=== PATIENT | male | born 1950 | race Caucasian/White ===

== ENCOUNTER → 2017-09-14 | Day surgery (SDC) | payer MEDICARE ==
[~2017-09-14] VITALS: Ht 190.5 cm; Wt 171.9 kg
[~2017-09-14] MED LIST: ADVAIR DISKUS 21 DSK INH; ALBUTEROL2.5 MG/0.5 INH; BRIO PO; LISINOPRIL10 M1 PO; LORCET PLUS 7.1 EACH PO; VITAMIN D5000 UNIT PO
--- NOTE | ~2017-09-14 | O ---
[place], [place] OPERATIVE NOTE NAME: MARVIN CABELLO [facility]: [id number] UNIT #: [id number] ROOM: DOCTOR: JAJA MACKENZIE MD BIRTHDATE: [birth year] DOS: 09/14/2017 PREOPERATIVE DIAGNOSIS: Cataract, right eye. POSTOPERATIVE DIAGNOSIS: Cataract, right eye. OPERATION: Extracapsular cataract extraction by phacoemulsification with posterior chamber intraocular lens implantation, right eye. ANESTHESIA: Monitored standby. OPERATIVE FINDINGS AND PROCEDURE: 2% Xylocaine topical anesthetic gel was applied to the eye in the preop area. The patient was taken to the operating room and prepped and draped in the standard fashion for sterile intraocular surgery. A time out procedure was performed verifying correct patient, correct site and corrects lens with Misael Mackenzie M.D. The operating microscope was swung into position and the lid speculum was inserted. Using a Macey paracentesis blade, a paracentesis was made through clear cornea. Viscoelastic was used to fill the anterior chamber. Using a metal keratome a 2.4 mm self-sealing clear corneal cataract incision was made temporally at the limbus. Using a pre-bent 25 gauge cystotome needle, a standard continuous curvilinear capsulorrhexis was performed. The anterior capsule was removed with forceps. The lens nucleus was hydrodissected and phacoemulsified in the posterior chamber. Cortical material was removed with the irrigation aspiration hand piece and the posterior capsule was then polished with a curet under irrigation. The posterior chamber and capsular bag were filled with viscoelastic. A posterior chamber intraocular lens manufactured by: [employer], Model #[id number] and 17.5 diopters in strength were then inserted into the posterior chamber and within the capsular bag using the lens cartridge and injector system. Viscoelastic was removed using the irrigation aspiration handpiece. The anterior chamber was filled with balanced salt solution through the paracentesis. Both the paracentesis site and cataract incisions were hydrated with BSS and verified to be water-tight and self-sealing. Cefuroxime 1 mg/0.1 mL was injected into the anterior chamber through the paracentesis site. The incision checked to be water-tight using a Weck-Zulma sponge. The integrity of the cataract wound and ocular tension were checked. Lid speculum and drapes were removed. The patient was transferred from the operating room to the recovery room in satisfactory condition. [place], [place] OPERATIVE NOTE NAME: MARVIN CABELLO UNIT #: [id number] ROOM: DOCTOR: JAJA MACKENZIE MD BIRTHDATE: [birth year] JAJA MACKENZIE MD CM:OPRECORD:OPERATIVE NOTE [id number] JAJA MACKENZIE MD 09/14/17 1004 interface
[2017-09-14 07:00] VITALS: BP 158/79
[2017-09-14 08:31] VITALS: BP 135/61
[2017-09-14 09:01] VITALS: BP 122/74
== END | disposition home or self-care (01) ==
LOC: SDC 09-07 08:45
DX: H26.9 Unspecified cataract (principal); I10 Essential (primary) hypertension; J44.9 Chronic obstructive pulmonary disease, unspecified; F17.210 Nicotine dependence, cigarettes, uncomplicated; Z79.899 Other long term (current) drug therapy; E66.01 Morbid (severe) obesity due to excess calories; Z98.890 Other specified postprocedural states; Z82.49 Family history of ischemic heart disease and other diseases of the circulatory system

== ENCOUNTER → 2017-10-19 | Day surgery (SDC) | payer MEDICARE ==
[~2017-10-19] VITALS: Ht 190.5 cm; Wt 158.8 kg
--- NOTE | ~2017-10-19 | O ---
[place], [place] OPERATIVE NOTE [id number] UNIT #: [id number] ROOM: DOCTOR: JAJA MACKENZIE MD BIRTHDATE: [birth year] DOS: 10/19/2017 PREOPERATIVE DIAGNOSIS: Cataract, left eye. POSTOPERATIVE DIAGNOSIS: Cataract, left eye. OPERATION: Extracapsular cataract extraction by phacoemulsification with posterior chamber intraocular lens implantation, left eye. ANESTHESIA: Monitored standby. OPERATIVE FINDINGS AND PROCEDURE: 2% Xylocaine topical anesthetic gel was applied to the eye in the preop area. The patient was taken to the operating room and prepped and draped in the standard fashion for sterile intraocular surgery. A time out procedure was performed verifying correct patient, correct site and corrects lens with Misael Mackenzie M.D. The operating microscope was swung into position and the lid speculum was inserted. Using a Macey paracentesis blade, a paracentesis was made through clear cornea. Viscoelastic was used to fill the anterior chamber. Using a metal keratome a 2.4 mm self-sealing clear corneal cataract incision was made temporally at the limbus. Using a pre-bent 25 gauge cystotome needle, a standard continuous curvilinear capsulorrhexis was performed. The anterior capsule was removed with forceps. The lens nucleus was hydrodissected and phacoemulsified in the posterior chamber. Cortical material was removed with the irrigation aspiration hand piece and the posterior capsule was then polished with a curet under irrigation. The posterior chamber and capsular bag were filled with viscoelastic. A posterior chamber intraocular lens manufactured by: [employer], Model #[id number], and 16.0 diopters in strength were then inserted into the posterior chamber and within the capsular bag using the lens cartridge and injector system. Viscoelastic was removed using the irrigation aspiration handpiece. The anterior chamber was filled with balanced salt solution through the paracentesis. Both the paracentesis site and cataract incisions were hydrated with BSS and verified to be water-tight and self-sealing. Cefuroxime 1 mg/0.1 mL was injected into the anterior chamber through the paracentesis site. The incision checked to be water-tight using a Weck-Zulma sponge. The integrity of the cataract wound and ocular tension were checked. Lid speculum and drapes were removed. The patient was transferred from the operating room to the recovery room in satisfactory condition. [place], [place] OPERATIVE NOTE NAME: MARVIN CABELLO UNIT #: [id number] ROOM: DOCTOR: JAJA MACKENZIE MD BIRTHDATE: [birth year] JAJA MACKENZIE MD CM:OPRECORD:OPERATIVE NOTE [id number] JAJA MACKENZIE MD 10/19/17 1419 interface
[2017-10-19 12:00] VITALS: BP 100/66
[2017-10-19 13:22] VITALS: BP 115/55
[2017-10-19 13:35] VITALS: BP 98/61
[2017-10-19 13:50] VITALS: BP 106/63
== END | disposition home or self-care (01) ==
LOC: SDC 10-14 13:15
DX: H25.89 Other age-related cataract (principal); I10 Essential (primary) hypertension; J43.9 Emphysema, unspecified; K21.9 Gastro-esophageal reflux disease without esophagitis; Z98.890 Other specified postprocedural states; F17.210 Nicotine dependence, cigarettes, uncomplicated; Z79.899 Other long term (current) drug therapy; E66.01 Morbid (severe) obesity due to excess calories; M19.90 Unspecified osteoarthritis, unspecified site; Z82.49 Family history of ischemic heart disease and other diseases of the circulatory system

== ENCOUNTER → 2017-12-09 | Outpatient (CLI) | payer MEDICARE | END | disposition home or self-care (01) | LOC: RAD 06:52 | DX: M19.031 Primary osteoarthritis, right wrist (principal); W19.XXXA Unspecified fall, initial encounter; Y93.89 Activity, other specified; Y92.89 Other specified places as the place of occurrence of the external cause; Y99.8 Other external cause status ==

== ENCOUNTER → 2018-02-10 | Outpatient (CLI) | payer MEDICARE | END | disposition home or self-care (01) | LOC: ORTHO 03:57 | DX: S42.92XD Fracture of left shoulder girdle, part unspecified, subsequent encounter for fracture with routine healing (principal); Z91.81 History of falling; X58.XXXD Exposure to other specified factors, subsequent encounter ==

== ENCOUNTER → 2018-02-15 | Outpatient (CLI) | payer MEDICARE ==
[2018-02-15 07:49] LABS: BUN 31 mg/dl (7-24); CREATININE 1.35 mg/dL (0.70-1.30)
== END | disposition home or self-care (01) ==
LOC: CT 02-13 10:00 → LAB 07:24 → CT 08:00
PROVIDERS: Internal Medicine Critical Care Medicine
DX: J44.9 Chronic obstructive pulmonary disease, unspecified (principal); R91.8 Other nonspecific abnormal finding of lung field; F17.200 Nicotine dependence, unspecified, uncomplicated

== ENCOUNTER → 2018-10-25 | Outpatient (CLI) | payer MEDICARE | END | disposition home or self-care (01) | LOC: RAD 08:38 | DX: M16.12 Unilateral primary osteoarthritis, left hip (principal) ==

== ENCOUNTER → 2018-12-06 | Outpatient (CLI) | payer MEDICARE | END | disposition home or self-care (01) | LOC: ORTHO 02:15 | DX: M47.816 Spondylosis without myelopathy or radiculopathy, lumbar region (principal); M41.86 Other forms of scoliosis, lumbar region; M51.36 Other intervertebral disc degeneration, lumbar region; W19.XXXD Unspecified fall, subsequent encounter ==

== ENCOUNTER → 2019-02-26 | Outpatient (CLI) | payer MEDICARE ==
[~2019-02-26] MED LIST changes: +BUMETANIDE1 MG PO; +CARVEDILOL12.5 MG PO; +DOXYCYCLINE100 M3 PO; +HYDROCODONE-AC1 EAC2 PO; +IBU600 M1 PO; +LISINOPRIL20 MG PO; +MAGNESIUM OXID400 MG PO; +MECLIZINE HCL25 M2 PO; +PREDNISONE5 MG PO; +PROTONIX40 MG PO; +VENTOLIN 02.5 MG/3 M NEB; +XARE20MG PO; +ZESTORETIC 20-1 EACH PO
[2019-02-26 10:57] LABS: BUN 26 mg/dl (7-24); CREATININE 1.17 mg/dL (0.70-1.30)
== END | disposition home or self-care (01) ==
LOC: CT 10:23 → LAB 10:23 → CT 11:00
PROVIDERS: Internal Medicine Critical Care Medicine
DX: R59.0 Localized enlarged lymph nodes (principal); R06.02 Shortness of breath

== ENCOUNTER → 2019-04-24 | Outpatient (CLI) | payer MEDICARE ==
[2019-04-24 10:36] LABS: BUN 32 mg/dl (7-24); CHLORIDE 98 mmol/L (98-107); CREATININE 1.37 mg/dL (0.70-1.30); POTASSIUM 4.1 mmol/L (3.5-5.1); SODIUM 136 mmol/L (136-145)
== END | disposition home or self-care (01) ==
LOC: LAB 09:43
PROVIDERS: Internal Medicine Nephrology
DX: E87.5 Hyperkalemia (principal)

== ENCOUNTER 2019-05-12 05:08 | Inpatient (IN) | payer MEDICARE ==
[2019-05-12] VITALS (64 sets, daily range): BP systolic 63–135; BP diastolic 30–71
[~2019-05-12] VITALS: Ht 190.5 cm; Wt 169.8 kg
--- NOTE | ~2019-05-12 | PR ---
[place], [place] PROGRESS NOTE [id number] UN[facility] #: [id number] ROOM: [facility] DOCTOR: OCTAVIA MEJIA MD BIRTHDATE: [birth year] DOS: 05/15/2019 SUBJECTIVE: The patient off mechanical ventilation and extubated, somewhat restless. OBJECTIVE: GENERAL APPEARANCE: The patient is alert and oriented x 3, in no visible distress. Morbid obesity VITAL SIGNS: Blood pressure 125/63, heart rate 78 beats per minute, breathing 20 times per minute, temperature 98.6 degrees Fahrenheit. HEENT AND NECK: Exam within normal limits. CARDIOVASCULAR SYSTEM: Heart rate is regular in rate and rhythm. S1 and S2 normally audible. LUNGS: Decreased breath sounds on lung auscultation. ABDOMEN: Soft, nontender. No obvious organomegaly. Bowel sounds are present. EXTREMITIES: Without significant cyanosis or edema. IMPRESSION: 1. The patient remains in the ICU for acute respiratory failure, is extubated and on mechanical ventilation, being treated. 2. Acute exacerbation of chronic obstructive pulmonary disease with acute over chronic respiratory failure, improving with treatment. 3. Acute pneumonia with Proteus mirabilis, being treated with antibiotics. 4. Severe hypotension related to septicemia, improved with hydration. 5. Mixed hyperlipidemia, treated and followed. 6. Morbid obesity. The patient is working with Dietary. 7. Advance adult failure to thrive and obesity. The patient is working with physical therapy. 8. Severe protein calorie malnutrition. The patient is working with Dietary. 9. Acute kidney failure, treated with hydration, the patient's kidney function was back to normal. OCTAVIA MEJIA MD CM:PNTRANS [id number] OCTAVIA MEJIA MD 05/16/19 0245 interface
--- NOTE | ~2019-05-12 | PR ---
[place], [place] PROGRESS NOTE [facility]: [id number] UNIT #: [id number] ROOM: 421 DOCTOR: SANFORD AGUILA MD,ELISSA BIRTHDATE: [birth year] DOS: 05/14/2019 PULMONARY CRITICAL CARE EVALUATION AND MANAGEMENT SUBJECTIVE: The patient remains in the Intensive Care Unit, sedated with IV Diprivan, but did not require any vasopressor therapy in the last 24 hours. He was continued to get a large volume of intravenous fluids administration. He has been given about 5.578 liters of intravenous fluid yesterday. Urine output noted with positive for 1.728 liters recorded. The patient was continued getting feeding from the orogastric tube as trophic feeding with Nepro. He has not been noted any acute hemodynamic instability at this time. The oxygen requirement remains unchanged. The patient remained on assist control, volume control, and mechanical ventilation. Sedation noted effective with use of intravenous Versed and use of the Diprivan infusion as well. The physical examination currently the patient is intubated, remains on the mechanical ventilator, orogastric tube is in place. The temperature curve was noted normal temperature in the last 24 hours. OBJECTIVE: VITAL SIGNS: Respiratory rate ranged between 28-20, heart rate 61-77, blood pressure of 115/52-111/48. Intake of 5.578 liters, output 3.858 liters, positive 1.728 liters. Pulse ox saturation on 30% oxygen 96% saturation recorded assist control, volume control on mechanical ventilation. HEENT: The patient is orally intubated, orogastric tube is in place. NECK: Supple and obese. CARDIOVASCULAR: S1, S2 is audible. LUNGS: Noted with decreased breath sounds in the lungs bilaterally. There was no wheeze or crackles. ABDOMEN: Soft, nontender. Bowel sounds present. EXTREMITIES: Noted with edema of the extremities. MUSCULOSKELETAL: Without acute deformities. CENTRAL NERVOUS SYSTEM: The patient opens his eyes with vocal commands, but sedated. LABORATORY DATA: CMP today, BUN 50, creatinine 1.35. Albumin 2.3. The CBC this morning, WBC count 6.8, hemoglobin 10.8, hematocrit of 33.9, platelet count 133,000. Chest x-ray done this morning noted without any acute new changes. Basilar area of atelectasis, infiltration endotracheal tube in place. Multi-lumen catheter in place, right internal jugular vein. Morbid obesity with limited assessment with a portable chest x-ray. Urine cultures, no bacterial growths. The culture of the endotracheal aspirate was noted with findings of Proteus mirabilis noted, pansensitive species. IMPRESSION: 1. The patient who has been currently noted was treated for acute pneumonia with Proteus mirabilis. 2. Severe acute hypercapnic and hypoxemic respiratory failure. 3. Chronic morbid obesity. 4. Peripheral edema. 5. Gradual resolution of acute kidney injury. [place], [place] PROGRESS NOTE NAME: MARVIN CABELLO UNIT #: [id number] ROOM: 421 DOCTOR: SANFORD AGUILA MD,ELISSA BIRTHDATE: [birth year] 6. Resolution of hypotension as well. The patient noted afebrile. PLAN OF MANAGEMENT: The patient will be started on weaning today with CPAP of 5, pressure support of 10, off sedation once the patient noted awake. De-escalation of antibiotic will be done based on the current culture results. Avoiding the further large fluid at this time. Consider diuresis. Bronchodilators continued to be administered. The vancomycin was discontinued. The Zosyn will be continued for gram-negative infection. Other therapy, plan and management, additional treatment changes will be made based on progression of the illness. Usual care. Supportive care therapy, plan and vent post-liberation of mechanical ventilation does occur today. The patient will be started on bilevel for the support of the respiratory failure. ADDENDUM LABORATORY DATA: The patient's arterial blood gas, pH of 7.39, pCO2 of 40, pO2 of 153, 30% oxygen supplementation is control, volume control, mechanical ventilation. Total time in pulmonary critical care, evaluation and management today for this patient assessment and management was 37 minutes. ELISSA CHRISTINA MD CM:PNTRANS [id number] ELISSA AGUILA MD 05/29/19 1006 interface
--- NOTE | ~2019-05-12 | PR ---
[place], [place] PROGRESS NOTE NAME: MARVIN CABELLO UNIT #: [id number] ROOM: 421 DOCTOR: ELISSA RAINES MD BIRTHDATE: [birth year] DOS: 05/16/2019 PULMONARY PROGRESS NOTE SUBJECTIVE: The patient noted comfortable at this time, resting on the bed, noted with general weakness and fatigue. Denies symptoms of chest pain. Shortness of breath occurs with mild exertion. There were no symptoms of chest pain. The patient denies any coughing or hemoptysis. Remaining systems were reviewed that was noted all negative. PHYSICAL EXAMINATION: VITAL SIGNS: For the patient this morning, resting comfortably in the Intensive Care Unit normal temperature, respiratory rate 19, heart rate 84, blood pressure 125/61. Pulse oxygen saturation on 3 liters nasal cannula 93% saturation. BiPAP 30% was 98% saturation. HEENT: Examination shows head was atraumatic. Eyes nonicterus. NECK: Supple. CARDIOVASCULAR: S1, S2 is audible. LUNGS: The patient was noted without any wheeze or crackle at the present time. ABDOMEN: Soft, nontender. Bowel sounds present. EXTREMITIES: Shows resolving edema. VISIBLE SKIN: Noted dryness of skin. No lesions or rashes. CENTRAL NERVOUS SYSTEM: General weakness and fatigue. MUSCULOSKELETAL: Without any acute deformities. LABORATORY DATA: CBC: WBC count normal, hemoglobin 11.4, platelet count 126,000 mildly decreased. CMP, normal BUN and creatinine. CO2 of 36. IMPRESSION: 1. Resolution of acute kidney injury, resolving acute hypercapnia hypoxemic respiratory failure gradually and progressive. 2. Acute pneumonia, gram-negative infection, responding to treatment gradually and progressive. 3. Debility secondary to multiple medical illnesses. PLAN OF TREATMENT: Out of bed to chair, physical therapy and occupational therapy. Bronchodilators administration. Continue antibiotics. Other therapy, plan of management with additional treatment changes will be ordered based on the progression of his illnesses. [place], [place] PROGRESS NOTE NAME: MARVIN CABELLO UNIT #: [id number] ROOM: 421 DOCTOR: ELISSA RAINES MD BIRTHDATE: [birth year] ELISSA CHRISTINA MD CM:PNTRANS 1232 [id number] ELISSA AGUILA MD 05/17/19 0036 interface
--- NOTE | ~2019-05-12 | PROC NOTE ---
[place], [place] PROCEDURE NOTE NAME: MARVIN CABELLO UNIT #: [id number] ROOM: [facility]- DOCTOR: FATOU ALFRED CRNA BIRTHDATE: [birth year] DOS: 05/12/2019 I was consulted by Dr. Bill to come in and intubate the patient. The patient failed a trial of BiPAP. On my arrival, he was still on BiPAP. O2 saturation 92% on 100%. The patient placed on 100% O2 via Ambu bag. Sedation with propofol 50 mg, rocuronium 50 mg. The patient intubated with a 2 Toure blade with an 8.0 tube secured at 24 cm at the lip. The patient did have good bilateral breath sounds. The patient did have a positive end tidal CO2 waveform. Initial opening CO2 was 75. While I was there, Dr. Temple requested to place an arterial line and a triple lumen catheter. Consent signed. Timeout was performed. Right radial was prepped and draped in a sterile fashion. Radial artery identified with ultrasound. Using an Arrow catheter kit, the radial art line was placed without difficulty with good flow and good waveform. Then, the patient was placed in a flat position. The right side of the neck was prepped and draped. A time-out was performed again. Right IJ was identified with ultrasound and a triple lumen catheter was placed using a Seldinger technique without difficulty. Sterile technique maintained throughout the procedure, tolerated well. Total time for intubation art line and central line, 90 minutes. FATOU ALFRED CRNA CM:PROCNOTE:PROCEDURE NOTE 1349 2250 FATOU ALFRED CRNA
--- NOTE | ~2019-05-12 | EKG ---
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
--- NOTE | ~2019-05-12 | EKG ---
[place], [place] ELECTROCARDIOGRAM REPORT NAME: MARVIN CABELLO UNIT #: [id number] ROOM: [facility] DOCTOR: ROGER DRAFT REPORT BIRTHDATE: [birth year] 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
--- NOTE | ~2019-05-12 | PR ---
[place], [place] PROGRESS NOTE [id number] UNIT #: [id number] ROOM: 421 DOCTOR: SANFORD AGUILA MD,ELISSA BIRTHDATE: [birth year] DOS: 05/13/2019 PULMONARY CONSULTATION, EVALUATION AND MANAGEMENT SUBJECTIVE: The patient is successfully intubated and started on mechanical ventilation. Multi-lumen catheter was inserted. A line was also placed. The patient has been noted with hypotension, requiring vasopressor therapy that has been continued yesterday to maintain mean arterial pressure of 65 or greater. Vasopressor therapy has been gradually weaned off this morning as well as stabilization of blood pressure was noted. He has been continued on intravenous antibiotics as well. Endotracheal aspirate cultures and newell-cultures were taken yesterday. Preliminary culture results of the current bronchial washing noted evidence of a moderate growth of Gram-negative bacilli, preliminary results, at the present time. Urine culture noted no bacterial growth; final culture results are pending. Arterial blood gases were done with adjustment of mechanical ventilation done accordingly. Low-grade fever is noted at this time as well; rectal temperature was assessed, 100.4 degrees Fahrenheit. He has been sedated with intravenous Diprivan and Versed combination, appeared to be comfortable on mechanical ventilation. The oxygen supplementation has been gradually decreased to 30% oxygen supplementation. Review of systems could not be completed, the patient is intubated. Also continued the patient on trophic feeding as well. The patient has been assessed by the Nephrology services yesterday as well for the medical management of acute kidney injury and hyperkalemia. OBJECTIVE: VITAL SIGNS: Highest temperature 100.4 degrees Fahrenheit, respiratory rate 18-20 as noted, heart rate of 69-73, blood pressure recorded as 80/45 to 101/49. Oral intake was 11 liters 150 mL; most of it was given between 1500 hours and 2300 hours as confirmed from the pharmacy as well. Total output is 6200 mL. Positive fluid balance of 5 liters in the last 24 hours was recorded. The patient is currently intubated. Orogastric tube is in place. HEENT: Examination shows head is atraumatic. Eyes nonicterus. NECK: Supple. NECK: Supple and obese. CARDIOVASCULAR: S1 and S2 audible. LUNGS: Noted decreased breath sounds in the lungs bilaterally. ABDOMEN: Soft and obese. EXTREMITIES: Noted with 2-3+ pitting edema in upper and lower extremities. MUSCULOSKELETAL: Without acute deformities. CENTRAL NERVOUS SYSTEM: The patient is currently sedated. VISIBLE SKIN: Dryness of the skin noted, without any lesions. LABORATORY DATA: Arterial blood gases which were done yesterday, first arterial blood gas done at 1438 hours noted as pH of 7.21, pCO2 of 55, pO2 of 83 on tidal volume of 600 mL, rate of 20 with 50% oxygen; repeat arterial blood gas done on the same setting yesterday noted as pH of 7.26, pCO2 of 48, pO2 of 117 on 50% oxygen. Arterial blood gases this morning at 05:55 a.m., pH is 7.34, pCO2 of 42, pO2 of 118 on 30% oxygen. CMP this morning - BUN 92, creatinine 2.53, glucose 117. Total protein 5.9, albumin 2.0. CBC of 05/13/2019 - WBC count [place], [place] PROGRESS NOTE NAME: MARVIN CABELLO UNIT #: [id number] ROOM: [facility] DOCTOR[facility] [birth year] 9.0, hemoglobin 11.1, hematocrit 34.3, platelet count 146. Culture of the endotracheal aspiration noted a moderate growth of Gram-negative bacilli. Gram-stain of yesterday - many white blood cells, many Gram-positive cocci in pairs, and many Gram-negative bacilli. DIAGNOSTIC DATA: Chest x-ray done this morning was reviewed, shows endotracheal tube noted in position with small basilar infiltration would be suspected. There was no infiltration or consolidation present. IMPRESSION: 1. The patient who has been noted with acute sepsis with hypovolemic acute kidney injury as well. 2. The patient with resolution of hyperkalemia. 3. Peripheral edema, fluid retention as well. 4. Hypotension, multifactorial, including from sepsis. 5. Gram-negative pneumonia is also noted at the present time. 6. Morbid obesity. 7. The patient with hypercapnic and hypoxemic respiratory failure. PLAN OF TREATMENT: Continue current antibiotics. Monitor kidney function. Avoid further intravenous fluids; currently given at 150 mL an hour to avoid a large amount of positive fluid balance and significant pleural fluid retention noted. Continue sedation. Continue antibiotic adjustment, antibiotic deescalation based on the culture results. Other therapy plan of management with additional treatment changes will be made based on progression of the illness. Continue nutrition support at this time with trophic feeding. Other therapy plan of management. No change in mechanical ventilation will be needed. Total time in pulmonary critical care evaluation and management was 40 minutes. ELISSA CHRISTINA MD CM:PNTRANS [id number] ELISSA AGUILA MD 05/29/19 1005 interface
--- NOTE | ~2019-05-12 | PR ---
[place], [place] PROGRESS NOTE [id number] UN[facility] #: [id number] ROOM: 421 DOCTOR: ASCENCION ALVAREZ MD BIRTHDATE: [birth year] DOS: SUBJECTIVE: The patient is doing well. He does not have any new complaints. OBJECTIVE: VITAL SIGNS: Graphic trend shows a pressure of 121/64, pulse of 79, respirations 18, temperature 99.6. LUNGS: Diminished breath sounds. Clear. HEART: Regular. ABDOMEN: Obese, soft. EXTREMITIES: Without any edema. LABORATORY DATA: Glucose 190, BUN 23, creatinine 1.05. Sodium 140, potassium 4.5, chloride 104, bicarbonate 34. Albumin 2.4. WBC count 6.3, hemoglobin 12.5. ASSESSMENT AND PLAN: 1. Morbid obesity with obesity hypoventilation. The patient is using the bilevel positive airway pressure at night. 2. Chronic obstructive pulmonary disease with acute exacerbation, which seems to have improved. 3. Chronic respiratory failure. Oxygenation has remained stable. 4. Adult failure to thrive, awaiting placement to a rehab center. ASCENCION ALVAREZ MD CM:PNTRANS [id number] ASCENCION ALVAREZ MD 05/17/19 0757 interface
--- NOTE | ~2019-05-12 | WRIGHTHP ---
[place], [place] PATIENT HISTORY AND PHYSICAL EXAM NAME: MARVIN CABELLO [facility] #: [id number] UNIT #: [id number] ROOM: [facility] DOCTOR: OCTAVIA MEJIA MD BIRTHDATE: [birth year] DOS: 05/12/2019 HISTORY OF PRESENT ILLNESS: The patient is a 69-year-old gentleman who presented to the Emergency Department at [facility] today with mental confusion starting about 2 in the morning. The patient had fallen down and not able to get up, complaining of some back pain to his , not eating, not drinking and quite short of breath. The patient was placed on BiPAP in the Emergency Department and found to be severely hyperkalemic. After initial treatment, admitted to ICU for further management. The patient presently being intubated and started on mechanical ventilation. Anesthesia was present. No recent chest pain. No other GI or urinary symptoms. PAST MEDICAL HISTORY: 1. Morbid obesity. 2. The patient with moderate persistent asthma. 3. COPD and continued nicotine smoke dependence. 4. Mixed hyperlipidemia. 5. History of inguinal hernia. 6. Poor compliance with treatment and followup. 7. Benign essential hypertension. 8. Vitamin D deficiency. 9. Osteoarthritis involving multiple large joints and chronic lower back pains. 10. Lumbar spondylosis. The patient on hydrocodone for chronic lower back pains. REVIEW OF SYSTEMS: RESPIRATORY: Increasing shortness of breath. GASTROINTESTINAL: Not eating well. CARDIOVASCULAR: No chest pains or palpitations. FAMILY HISTORY: Noncontributory. HOME MEDICATIONS: The patient was taking breathing treatments, Bumex, Coreg, vitamin D, hydrocodone, ibuprofen, lisinopril at home. ALLERGIES: No known drug allergies. PHYSICAL EXAMINATION: GENERAL: The patient obtunded. He was given Ativan in the ambulance because he was very restless. He is unable to answer any questions. HEENT AND NECK: Extraocular movements are intact. Sclerae are anicteric. Oral mucosa is moist and clean. No obvious facial weakness. Neck is supple without any lymphadenopathy. No thyromegaly. No JVD. No carotid arterial bruits. LUNGS: Somewhat decreased breath sounds, CARDIOVASCULAR SYSTEM: Heart rate is regular in rate and rhythm. S1 and S2 normally audible. No significant murmur or any other abnormal cardiac sounds. ABDOMEN: Soft, nontender. No obvious organomegaly. Bowel sounds are present. No obvious herniation. EXTREMITIES: Obesity and generalized weakness, but he is able to move all extremities. [place], [place] PATIENT HISTORY AND PHYSICAL EXAM [facility]: [id number] UNIT #: [id number] ROOM: [facility] DOCTOR: OCTAVIA MEJIA MD BIRTHDATE: [birth year] CENTRAL NERVOUS SYSTEM: Alert and oriented x 3. Cranial nerves II-XII are intact. Speech is normal. The patient is able to move all extremities. Normal muscle strength. Deep tendon reflexes are equal on both sides. Plantars were downgoing. IMPRESSION AND PLAN: 1. The patient presenting with acute respiratory failure with CO2 retention, CO2 narcosis, is being intubated and started on mechanical ventilation in the ICU now. 2. Altered mental status, metabolic encephalopathy from acute respiratory failure and CO2 narcosis. 3. Severe hyperkalemia from acute kidney failure. The patient is being hydrated with normal saline. 4. Acute kidney failure related to dehydration, heat wave, patient not drinking enough fluids and taking ibuprofen for osteoarthritis. Dr. Hendrickson, child center assistant to follow. 5. Morbid obesity. The patient to work with Dietary. 6. Advanced centrilobular emphysema with acute over chronic respiratory failure and nicotine smoke dependence. 7. Mixed hyperlipidemia, to be followed and treated. 8. Moderate persistent asthma with acute exacerbation, treated as above. Dr. Bill is being consulted. OCTAVIA MEJIA MD CM:HISPHYS:PATIENT HISTORY AND PHYSICAL EXAMINATION [id number] OCTAVIA MEJIA MD 05/12/19 1423 interface
--- NOTE | ~2019-05-12 | PR ---
[place], [place] PROGRESS NOTE NAME[id number] UNIT #: [id number] ROOM: 421 DOCTOR: ASCENCION ALVAREZ MD BIRTHDATE: [birth year] DOS: SUBJECTIVE: The patient is doing well, does not have any new complaints. OBJECTIVE: VITAL SIGNS: Blood pressure is 103/61, pulse of 65, respirations 20, temperature 98.1. LUNGS: Diminished breath sounds. No wheezes, rales or rhonchi heard. HEART: Regular. ABDOMEN: Obese, soft, nontender. EXTREMITIES: Without any edema. LABORATORY DATA: Echocardiogram shows a normal left ventricular wall motion, normal size left ventricle, moderate concentric LVH with ejection fraction of 65%. ASSESSMENT AND PLAN: 1. Acute exacerbation of chronic obstructive pulmonary disease, improved. 2. Acute respiratory failure from underlying chronic obstructive pulmonary disease, stable. 3. Benign hypertension with moderate left ventricular hypertrophy, on echocardiogram. 4. Atrial fibrillation, paroxysmal, on beta blockers. 5. Adult failure to thrive, to go to [facility] today. ASCENCION ALVAREZ MD CM:PNTRANS [phone] ASCENCION ALVAREZ MD 05/19/19 1540 interface
--- NOTE | ~2019-05-12 | PR ---
[place], [place] PROGRESS NOTE NAME: MARVIN CABELLO UNIT #: [id number] ROOM: 421 DOCTOR: ASCENCION ALVAREZ MD BIRTHDATE: [birth year] DOS: SUBJECTIVE: The patient is sleeping with the BiPAP on. He states that he did not have any new problems. During the night, his heart rate went up into the 140s, the dose of digoxin was given and the heart rate slowed down into the 70s and in sinus rhythm. He denies having any chest pains, palpitations, not have any fever or chills. PHYSICAL EXAMINATION: GENERAL: He is awake and alert and oriented. VITAL SIGNS: Blood pressure is 122/70, pulse of 76 and regular, respirations 20. LUNGS: Diminished breath sounds. Clear. HEART: Regular. ABDOMEN: Obese. EXTREMITIES: Trace edema bilaterally. ASSESSMENT AND PLAN: 1. Chronic hypercapnic respiratory failure, on BiPAP. 2. Morbid obesity with adult failure to thrive, awaiting placement to a local alf and hopefully, Social Service will be arranged for him to go. 3. Swelling of the lower legs. Lasix will be given 1 dose IV today. ASCENCION ALVAREZ MD CM:PNTRANS 7 ASCENCION ALVAREZ MD 05/18/19 1217 interface
--- NOTE | ~2019-05-12 | PR ---
[place], [place] PROGRESS NOTE NAME: MARVIN CABELLO UNIT #: [id number] ROOM: 421 DOCTOR: SANFORD AGUILA MD,ELISSA BIRTHDATE: [birth year] DOS: 05/21/2019 SUBJECTIVE: The patient noted comfortable at this time, sitting on the chair this morning. Denies symptoms of chest pain, edema of lower extremity noted partially decreased after administration of diuretics. Denies any coughing, wheezing, or chest pain. OBJECTIVE: VITAL SIGNS: The patient has a normal temperature, respiratory rate of 20, heart rate 60, blood pressure of 94/50. The pulse oxygen saturation recorded on 3 liters 95% saturation at rest. HEENT: Examination shows head was atraumatic. Eyes nonicterus. NECK: Supple. CARDIOVASCULAR: S1, S2 is audible. LUNGS: The patient was noted without any wheeze or crackles. ABDOMEN: Soft and obese. EXTREMITIES: Resolving edema; however, the resolution noted incomplete. IMPRESSION: Stable respiratory status noted at present time responding to current treatment with improving acute hypercapnia hypoxic respiratory failure, peripheral edema and acute tracheobronchitis. PLAN OF TREATMENT: No changes in the plan of management. Continue current therapy, plan of management, awaiting for the patient transferred to the prison facility upon authorization of the insurance. Transfer the patient to the prison facility whenever desired. ELISSA CHRISTINA MD CM:PNTRANS [phone] ELISSA AGUILA MD 05/21/19 1602 interface
--- NOTE | ~2019-05-12 | CON ---
[place], [place] REPORT OF CONSULTATION NAME: MARVIN CABELLO UNIT #: [id number] ROOM: 421 DOCTOR: SANFORD AGUILA MDELISSA BIRTHDATE: [birth year] DOS: 05/12/2019 PULMONARY CONSULTATION, EVALUATION AND MANAGEMENT REASON FOR CONSULTATION: For assessment of the current respiratory failure and management. HISTORY OF PRESENT ILLNESS: This is a 69-year-old white male known to me from the past. The patient has been seen in the office on regular basis, but last seen in the office on 02/18/2019 known with history of COPD with chronic obesity as well as pulmonary nodule, which has been noted essentially in the superior mediastinum, which noted stable and probably consider as benign 1 cm mediastinal mass. The patient has been admitted to the hospital under care of Dr. Selby on the date 05/12/2019. The patient brought to the hospital as the patient has been reported with having progressive lethargy with confusional status. The patient was also reported with difficulty ambulation while at home as per the girlfriend of the patient. Sister was present in the room with the patient to the assist me with some history, however, history was not noted clear from her as well for the acute events. However, the patient was reported decreased oral intake and not eating or drinking, any much food, but continued to take his home medications, which has been administered to this patient. He had not been reported symptoms of hemoptysis. The patient was assessed during this hospitalization noted severe acute hypercapnic and hypoxemic respiratory failure, was started on the BiPAP and remained on response to vocal commands, not arousable. Initially, the patient given the bronchodilator in the Emergency Room. The patient was assessed, he was not noted arouse with the patient currently getting BiPAP setting of 16/10. He was getting 50% oxygen supplementation. The oxygen supplement saturation of the patient was well maintained because of that, also noted severe hyperkalemia, which has been managed with intravenous bicarbonate, insulin, dextrose and other medication that consultation was noted from the Nephrology Service. The patient management was started, but not seen by the Nephrology services at the present time of assessment. PAST MEDICAL HISTORY: 1. Severe COPD. 2. Morbid obesity. 3. Intervertebral disk disease. 4. 1 cm anterior mediastinal mass most likely a benign mass. PAST SURGICAL HISTORY: Noted as extraction with lens implantation in 2017. SOCIAL HISTORY: The patient is currently , has 2 children, and lives at home. Denies history of alcohol use, illicit drug use. Tobacco use noted from age of [age] years old and one half pack of cigarettes per day with active tobacco use reported not sure how much smoking cigarettes. The patient has been done in the last few days. There was no history of alcohol use, illicit drug use. FAMILY HISTORY: The patient's father at 52 of complications of myocardial infarction. Mother , history is unknown. [place], [place] REPORT OF CONSULTATION NAME: MARVIN CABELLO UNIT #: [id number] ROOM: 421 DOCTOR: ELISSA RAINES MD BIRTHDATE: [birth year] MEDICATIONS: Medications which were taken from home were noted Incruse Ellipta, Ventolin HFA inhaler, aspirin, Breo Ellipta, vitamin D, and ibuprofen. Medication currently administered was noted as heparin for DVT prophylaxis. DRUG ALLERGIES: The patient noted as no known drug allergies. PHYSICAL EXAMINATION: GENERAL: This is a 69-year-old white male. Currently, noted unresponsive. Height of 6 feet 3 inches, weight of 247 pounds, BMI 43. VITAL SIGNS: For the patient, which has been recorded shows the blood pressure was noted on admission 91/47, later 86/44. Temperature 99.5 degrees on admission, respiratory rate between 41 and later on 27. Heart rate with sinus tachycardia 104-115. Pulse ox saturation 94% saturation on 50% with the BiPAP at this time. HEAD, EYES, EARS, NOSE, AND THROAT: The patient is currently noted with severe obesity. Head was atraumatic. Full face mask in place. NECK: Supple and obese. CARDIOVASCULAR SYSTEM: S1, S2 is audible. LUNGS: Noted with decreased breath sounds in the lungs bilaterally. There were no wheezing or crackles heard. ABDOMEN: Noted with severe obesity. Hypoactive bowel sounds. There was no tenderness elicited. VISIBLE SKIN: No lesions or rashes. EXTREMITIES: Noted with edema. MUSCULOSKELETAL: Without acute deformities. SKIN: No lesions or rashes. CENTRAL NERVOUS SYSTEM: Unresponsiveness. LABORATORY AND DIAGNOSTIC DATA: CBC on 05/12/2019 this morning: WBC count 14,000, hemoglobin 13.8, and platelet count 27,000. The PT/INR was noted 0.9 this morning. Lactic acid 0.6. CMP as glucose 136, BUN of 147, creatinine 4.78. The potassium was 6.6. Anion gap was noted as normal at this time. The serum ketones levels were noted as negative. Arterial blood gas that was done on 05/12/2019, pH of 7.10, pCO2 of 72.4, pO2 133 for this that was done on 100% nonrebreather mask. The arterial blood gas that was done on the BiPAP with pH of 7.04, setting of 16/10 with 50% oxygen. One view chest limited done 6 o'clock this morning, was noted without any evidence of acute major pulmonary infiltration, finding of congestive heart failure, pleural fluid, small basilar area of atelectasis or infiltration would be considered. CT scan of the cervical spine and was done in the Emergency Room, was noted without acute intracranial pathology, any abnormal finding of the thoracic and lumbar and cervical spine. IMPRESSION: 1. The patient will be currently admitted to the hospital noted with evidence of severe acute hypercapnic respiratory failure with hypoxemia as well. Basilar atelectasis, rule out pneumonia from aspiration. 2. Severe acute hyperkalemia. [place], [place] REPORT OF CONSULTATION NAME: MARVIN CABELLO UNIT #: [id number] ROOM: 421 DOCTOR: TIMBO RAINES MDULAM BIRTHDATE: [birth year] 3. Acute kidney most likely secondary to acute tubular necrosis or medication-induced acute nephropathy with previous use of ibuprofen, cannot be completely excluded. 4. Severe morbid obesity as well. 5. Morbid obesity. 6. The patient with known history of chronic obstructive pulmonary disease as well. 7. Rule out acute sepsis. 8. Severe hyperkalemia secondary to acute change as well. Interestingly, the patient does not show any evidence of metabolic acidosis on the CMP patient today. 9. Mild hypertension, possible consideration of sepsis as well in the differential diagnosis. PLAN OF care: The patient has been ordered newell culture. Antibiotic was ordered intubation and mechanical ventilation will be started assist control, volume control, mechanical ventilation, intubation was to be done by the Anesthesia Services. Bronchodilator will be given as well to help mobilize secretion. Ventilator bundle management. Assess whether he will be ordered. The patient will be started on the Nepro, 20 mL an outpatient. Other trophic feeding. DVT prophylaxis be continued form of Lovenox. Other additional treatment changes will be made for based on progression of the illness with other supportive care, plan of management to be continued for the patient according to progression of the illness. The rest of management as well as ongoing illness manage. Discussed with one of the patient's sister bed in the room and his son and the daughter. All in agreement. The patient intubation and mechanical ventilation. Continuation resuscitative measures. The sedation will be given with IV Diprivan and propofol. The vasopressors might need in case of progressive hypertension. Repeat lab for this later on will require the multi-lumen catheter insertion because of the infusion of the medication including possible use and need of vasopressor therapy. Total time in pulmonary critical management of patient was 45 minutes. ELISSA CHRISTINA MD CM:CONSTR:REPORT OF CONSULTATION 1616 05/29/19 1004 interface
--- NOTE | ~2019-05-12 | EKG ---
[place], [place] ELECTROCARDIOGRAM REPORT NAME: MARVIN CABELLO UNIT #: [id number] ROOM: [facility] DOCTOR: ROGER DRAFT REPORT BIRTHDATE: [birth year] [facility] Test Date: 2019-05-12 Test Time: 05:57:30 Pat Name: MARVIN CBAELLO Department: Room: [facility] Gender: M Supervisor Policy Change Clerks: : [id number] Requested By: RYLAN LEO Order Number: [id number] Reading MD: Nikita Hayes MD Measurements Intervals [place] Rate: 111 P: 72 NE: 132 QRS: 120 QRSD: 138 T: 37 QT: 331 QTc: 450 Interpretive Statements Sinus tachycardia RBBB and LPFB Minimal ST elevation, inferior leads Compared to ECG 04/18/2019 19:23:51 Left posterior fascicular block now present ST (T wave) deviation now present Atrial flutter no longer present Electronically Signed On 05-12-2019 15:27:50 PDT by Nikita Hayes MD CM:EKGRPT:ELECTROCARDIOGRAM REPORT [id number] RYLAN KIRBY DRAFT REPORT RYLAN LEO DO
--- NOTE | ~2019-05-12 | DS ---
[place], [place] DISCHARGE SUMMARY [id number] UNIT #: [id number] ROOM: 421 DOCTOR: ASCENCION ALVAREZ MD BIRTHDATE: [birth year] DOS: 05/19/2019 This patient was admitted to the hospital on 05/12/2019, discharged on 05/19/2019. DIAGNOSES: 1. Acute exacerbation of chronic obstructive pulmonary disease. 2. Acute hypoxic respiratory failure. 3. Moderate cigarette smoker, quit smoking 3 weeks ago. 4. Morbid obesity with obesity hypoventilation. 5. Mixed hyperlipidemia. 6. Benign hypertension with moderate left ventricular hypertrophy. 7. Paroxysmal atrial fibrillation. 8. Primary osteoarthritis, multiple joints with lumbar spondylosis. 9. Adult failure to thrive. HISTORY OF PRESENT ILLNESS: The patient is a 69-year-old, comes in after having fallen at home. He fell back in his bedroom and he was unable to get up. His girlfriend was also not able to get him up, so they called the ambulance, was sent to the Emergency Room. By the time he arrived to the ER was slightly confused, was found to be hyperkalemic with evidence of acute kidney failure. The patient was admitted, was seen by Dr. Toure's group. The patient continues to improve and he is not having any new problems. Social service has been consulted and the patient is going to be placed in [facility] for short-term rehabilitation. Echocardiogram shows LVH. The patient has paroxysmal atrial fibrillation and has been placed on Xarelto and beta blockers. He continued to get worse and he was therefore intubated and was placed in the ICU. He also had acute kidney injury. His diuretics were discontinued. Renal ultrasound showed no pathology. The patient is stable and improving. The plan is to discharge him to [facility] today and instructed to avoid taking his nephrotoxic medications, especially Motrin. The patient does use BiPAP and continues to require that at night. The patient will be followed up by Dr. Selby at the [facility]. DISCHARGE MEDICATIONS: Will be albuterol breathing treatments q. 6 hours, Xarelto 20 daily, mag oxide 400 b.i.d., Protonix 40 daily, prednisone 5 b.i.d., doxycycline 100 b.i.d., vitamin D3 5000 units daily, Bumex 1 mg q. 48 hours, carvedilol 12.5 b.i.d., [place] 7.5 q. 6 hours p.r.n., lisinopril 20 daily, hydrochlorothiazide has been discontinued. [place], [place] DISCHARGE SUMMARY NAME: MARVIN CABELLO UNIT #: [id number] ROOM: [facility] DOCTOR: ASCENCION ALVAREZ MD BIRTHDATE: [birth year] ASCENCION ALVAREZ MD CM:KUNAL [id number] ASCENCION ALVAREZ MD 05/19/19 1251 interface
--- NOTE | ~2019-05-12 | PR ---
[place], [place] PROGRESS NOTE NAME: MARVIN CABELLO UNIT #: [id number] ROOM: 421 DOCTOR: ELISSA RAINES MD BIRTHDATE: [birth year] DOS: 05/17/2019 PULMONARY PROGRESS NOTE SUBJECTIVE: He has been noted comfortable at this time, sitting in the chair this morning, participating in the physical therapy. Denies symptoms of chest pain. General weakness and fatigue were noted. Respiratory symptom continues to improve of shortness of breath. Mild cough was noted. There is no wheezing or chest pain reported by the patient. OBJECTIVE: VITAL SIGNS: Temperature noted 99.6 degrees Fahrenheit, normal temperature, respiratory rate 18, heart rate 76, blood pressure 117/67 this morning. The pulse ox saturation recorded on 3 liters nasal cannula 97% saturation. HEENT: Examination shows head was atraumatic. EYES: No icterus. NECK: Supple. CARDIOVASCULAR: S1, S2 is audible. LUNGS: The patient was noted with moderate decreased breath sounds in the lungs bilaterally. ABDOMEN: Soft, nontender. Bowel sounds present. EXTREMITIES: Chronic obesity. IMPRESSION: 1. The patient with resolving acute hypercapnic and hypoxemic respiratory failure. 2. The patient with acute pneumonia, gram-negative infection as well. 3. Severe debility. 4. Resolution of acute kidney injury. PLAN OF MANAGEMENT: Continuation of the current plan of management at this time as ongoing. All other therapy, plan of management, care plan and treatment will be continued as ongoing. Usual care. Supportive plan of management, treatment and care. [place], [place] PROGRESS NOTE NAME: MARVIN CABELLO UNIT #: [id number] ROOM: 421 DOCTOR: ELISSA RAINES MD BIRTHDATE: [birth year] ELISSA CHRISTINA MD CM:PNTRANS [phone] ELISSA AGUILA MD 05/29/19 1012 interface
--- NOTE | ~2019-05-12 | PR ---
[place], [place] PROGRESS NOTE NAME: MARVIN CABELLO UNIT #: [id number] ROOM: [facility] DOCTOR: OCTAVIA MEJIA MD BIRTHDATE: [birth year] DOS: 05/13/2019 SUBJECTIVE: The patient does wake up and respond to questions. He is still intubated and on mechanical ventilation. OBJECTIVE: VITAL SIGNS: Blood pressure 102/57, heart rate of 73 beats per minute, breathing 18 times per minute, temperature 99.6 degrees Fahrenheit. GENERAL APPEARANCE: The patient is alert and oriented x 3, in no visible distress, morbidly obese, generalized weakness. HEENT AND NECK: Exam within normal limits. CARDIOVASCULAR SYSTEM: Heart rate is regular in rate and rhythm. S1 and S2 normally audible. LUNGS: Clear to auscultation. ABDOMEN: Soft, nontender. No obvious organomegaly. Bowel sounds are present. EXTREMITIES: Without significant cyanosis or edema. IMPRESSION: 1. Acute on chronic respiratory failure with acute exacerbation of chronic obstructive pulmonary disease, remains intubated and on mechanical ventilation in the ICU. Dr. Bill is following. Pneumonia is being considered. Sputum cultures growing moderate gram-negative bacilli. No leukocytosis. 2. Respiratory failure is improving, pH of 7.34 this morning. Chest x-ray shows no acute abnormality. 3. Morbid obesity. The patient is to work with dietary. Presently, he has been fed with NG tube feedings. 4. Acute renal failure. BUN, creatinine, potassium levels all improving with hydration. 5. Severe hypotension, improved with Levophed and hydration with normal saline. 6. Severe protein calorie malnutrition, albumin level of 2.3. The patient is being fed with NG tube feeding and followed by Dietary. 6. Severe hyperkalemia, improved with hydration and treatment. 7. Morbid obesity. The patient is to work with Dietary. 8. Mixed hyperlipidemia, followed and treated. [place], [place] PROGRESS NOTE NAME: MARVIN CABELLO UNIT #: [id number] ROOM: [facility] DOCTOR: OCTAVIA MEJIA MD BIRTHDATE: [birth year] OCTAVIA MEJIA MD CM:PNTRANS [id number] OCTAVIA MEJIA MD 05/14/19 0145 interface
--- NOTE | ~2019-05-12 | PR ---
[place], [place] PROGRESS NOTE NAME: MARVIN CABELLO UNIT #: [id number] ROOM: [facility] DOCTOR: OCTAVIA MEJIA MD BIRTHDATE: [birth year] DOS: 05/14/2019 SUBJECTIVE: The patient off sedation being weaned off mechanical ventilation, presently on CPAP. OBJECTIVE: VITAL SIGNS: Blood pressure 101/41, heart rate 61 beats per minute, breathing 18 times per minute, temperature 98 degrees Fahrenheit. GENERAL APPEARANCE: The patient is alert and oriented x 3, in no visible distress. Morbid obesity. HEENT AND NECK: Exam within normal limits. CARDIOVASCULAR SYSTEM: Heart rate is regular in rate and rhythm. S1 and S2 normally audible. LUNGS: Somewhat decreased breath sounds, slight expiratory wheezing on lung auscultation. ABDOMEN: Soft, nontender. No obvious organomegaly. Bowel sounds are present. EXTREMITIES: Without significant cyanosis or edema. IMPRESSION: 1. Acute over chronic respiratory failure with acute exacerbation of chronic obstructive pulmonary disease. 2. Suspected pneumonia, clinically not seen on the chest x-ray with purulent sputum growing Proteus mirabilis sensitive to most antibiotics, being treated with antibiotics, nebulizer treatments, corticosteroids and he is improving. 3. Acute kidney failure from patient being sick and not eating for a few days, getting dehydrated. Since it is a vascular type, acute renal failure is recovering with hydration. 4. Severe protein-calorie malnutrition with an albumin level of 2.3 related to overall poor health. 5. Morbid obesity. We are taking bedsore precautions. The patient to work with physical therapy. 6. Mixed hyperlipidemia, treated and followed. 7. Severe hyperkalemia from acute kidney failure, resolved with treatment. 8. Severe hypotension from hypovolemia and dehydration and infection. Blood pressures have improved. The patient was on pressors, Levophed for blood pressure control and hypotension along with normal saline infusion. [place], [place] PROGRESS NOTE NAME: MARVIN CABELLO UNIT #: [id number] ROOM: [facility] DOCTOR: OCTAVIA MEJIA MD BIRTHDATE: [birth year] OCTAVIA MEJIA MD CM:PNTRANS [phone] OCTAVIA MEJIA MD 05/15/19 0004 interface
--- NOTE | ~2019-05-12 | PR ---
[place], [place] PROGRESS NOTE NAME: MARVIN CABELLO [facility] #: [id number] UNIT #: [id number] ROOM: 421 DOCTOR: SANFORD AGUILA MD,ELISSA BIRTHDATE: [birth year] DOS: 05/15/2019 SUBJECTIVE: The patient was noted comfortable at this time, successfully liberated from mechanical ventilation yesterday. Use the BiPAP as ordered. The patient denies symptoms of chest pain, fever or chills. Denies symptoms of hemoptysis, noted to be awake and alert this morning, using oxygen supplement nasal cannula, starting clear liquid diet initially tolerated, advanced to usual diet. He was noted low-grade fever as well. He had not been noted any symptoms of chest pain, fever or chills or any acute hemoptysis. The edema of the lower extremity has been and the upper extremity was noted decreased, but not completely resolved. REVIEW OF SYSTEM: Otherwise conducted noted all negative. OBJECTIVE: VITAL SIGNS: Temperature maximum is 99.5 degree Fahrenheit, normal temperature, and respiratory rate of 21-18. Heart rate 79-61, blood pressure 122/69-133/61. Pulse oxygen saturation recorded as 95% saturation. HEAD, EYES, EARS, NOSE, AND THROAT: Examination shows head was atraumatic. Eyes nonicterus. NECK: Supple and obese. CARDIOVASCULAR system: S1, S2 audible. LUNGS: Noted without any wheezing or crackle. Breaths are noted diminished bilaterally. ABDOMEN: Soft, nontender, obese. EXTREMITIES: Resolving edema with chronic changes. MUSCULOSKELETAL: Without acute deformities. CENTRAL NERVOUS SYSTEM: Intact. SKIN: No lesions or rashes. LABORATORY DATA: The CMP this morning; BUN 29, creatinine normal, glucose 105. Phosphorus 2.2, which was mildly decreased. CBC this morning: WBC count was normal, hemoglobin 11.2, platelet 135,000. Urine for legionella antigens were negative. Arterial blood gas that was done yesterday as the patient was liberated from mechanical ventilator on the BiPAP setting of 16/10, pH of 7.37, pCO2 of 45, pO2 of 130, four hour post liberation mechanical ventilation. Arterial blood gas CPAP mode on mechanical ventilation prior to liberation of mechanical ventilation, pH of 7.33, pCO2 of 40, pO2 of 59.3. IMPRESSION: 1. Resolving acute pneumonia at the present time gram-negative infection with Proteus mirabilis. 2. Improving acute severe hypercapnic and hypoxic respiratory failure. 3. Suspicion of obstructive sleep apnea disorder, not assessed. 4. Chronic morbid obesity. 5. Resolution of hypotension on admission noted markedly. 6. Mild hypophosphatemia. 7. General anxiety disorder. PLAN OF MANAGEMENT: The patient could be transferred to telemetry floor. [place], [place] PROGRESS NOTE NAME: MARVIN CABELLO UNIT #: [id number] ROOM: [facility] DOCTOR: ELISSA RAINES MD BIRTHDATE: [birth year] Continuation of the current plan of management, antibiotics, bronchodilators. Monitor respiratory status. Usual care, other therapy, plan of management. Upon discharge, outpatient assessment for the sleep apnea disorder. At this time, no additional changes will be necessary. The BiPAP could be used at nighttime if the patient apparently has any respiratory distress. ELISSA CHRISTINA MD CM:PNTRANS [id number] ELISSA AGUILA MD 05/29/19 1008 interface
--- NOTE | ~2019-05-12 | PR ---
[place], [place] PROGRESS NOTE NAME: MARVIN CABELLO UNIT #: [id number] ROOM: 421 DOCTOR: ASCENCION ALVAREZ MD BIRTHDATE: [birth year] DOS: 05/20/2019 SUBJECTIVE: The patient is not having any new complaints. OBJECTIVE: VITAL SIGNS: Graphic trend shows a pressure of 100/59, pulse of 60, respirations 18, and temperature 97.7. LUNGS: Diminished breath sounds, but clear. HEART: Regular. ABDOMEN: Obese. EXTREMITIES: Trace edema. ASSESSMENT AND PLAN: 1. Acute respiratory failure, hypercapnic and hypoxic. The patient is requiring BiPAP and will need to have a BiPAP to be discharged. We will try to contact [facility] tomorrow to try to get him a trilogy ventilator. 2. Adult failure to thrive, already discharged the patient to [facility]. Unfortunately, since we have not arranged for the BiPAP, he could not go. I am hoping to do that tomorrow. 3. Chronic obstructive pulmonary disease with acute exacerbation, stable. 4. Paroxysmal atrial fibrillation, on beta blockers and long-term use of anticoagulants. One dose of Lasix will be given today. ASCENCION ALVAREZ MD CM:PNTRANS [phone] ASCENCION ALVAREZ MD 05/20/19 2008 interface
--- NOTE | ~2019-05-12 | PR ---
[place], [place] PROGRESS NOTE NAME: MARVIN CABELLO UNIT #: [id number] ROOM: 421 DOCTOR: SANFORD AGUILA MD,ELISSA BIRTHDATE: [birth year] DOS: 05/19/2019 SUBJECTIVE: The patient noted comfortable at this time, sitting on the chair this morning of assessment still noted weakness, but respiratory symptoms were noted. No symptoms of shortness of breath, coughing, or wheezing this morning of assessment. OBJECTIVE: VITAL SIGNS: For the patient, which has been recorded normal temperature, respiratory rate 20, heart rate 69, blood pressure 170/56. Pulse ox saturation on 3 liters 94% saturation. HEENT: Chronic obesity. NECK: Supple. CARDIOVASCULAR: S1, S2 is audible. LUNGS: The patient was noted without any wheeze or crackles at the present time. ABDOMEN: Soft, nontender. Bowel sounds present. EXTREMITIES: No acute change. IMPRESSION: 1. The patient with progressive resolution noted acute hypercapnic hypoxic respiratory failure. 2. Severe debility. 3. Resolved acute kidney injury. PLAN OF TREATMENT: No changes in plan of care from pulmonary standpoint. Continue current therapy as in progress. The patient was [facility] or continuation of the rehabilitation. No changes need to be done from pulmonary standpoint. Continue with the BiPAP and other treatments. ELISSA CHRISTINA MD CM:PNTRANS [phone] ELISSA AGUILA MD 05/19/19 1345 interface
--- NOTE | ~2019-05-12 | PR ---
[place], [place] PROGRESS NOTE NAME: MARVIN CABELLO [facility] #: [id number] UNIT #: [id number] ROOM: 421 DOCTOR: SANFORD AGUILA MD,ELISSA BIRTHDATE: [birth year] DOS: 05/20/2019 PULMONARY PROGRESS NOTE SUBJECTIVE: The patient noted comfortable at this time, sitting on the chair, some symptoms of shortness of breath reported with symptoms of coughing, chest pain, fever, chills. Denies symptoms of abdominal pain, nausea, vomiting, diarrhea. Denies symptoms of hematemesis, melena, hematochezia, complaining of pain in the shoulder stating that he has some past injury to the shoulder. The patient would like to be assessed by the guest experience specialist. The patient had been assessed by another guest experience specialist a couple of years ago, stated that he could not undergo any surgical intervention because of his age and also his respiratory status. The patient otherwise noted as negative. OBJECTIVE: GENERAL: The patient for acute inpatient. This morning, sitting on the recliner chair. VITAL SIGNS: Normal temperature, respiratory rate of 20, heart rate of 62, blood pressure 122/58. Pulse oxygen saturation recorded on 2 liters nasal cannula 96% saturation. HEENT: Examination shows head was atraumatic. Eyes nonicterus. NECK: Supple. CARDIOVASCULAR: S1, S2 is audible. LUNGS: Noted clear to auscultation bilaterally. ABDOMEN: Soft, nontender. Bowel sounds present. EXTREMITIES: Noted with 2+ pitting edema. MUSCULOSKELETAL: Noted without any acute deformities. VISIBLE SKIN: No lesions or rashes. CENTRAL NERVOUS SYSTEM: Intact. LABORATORY DATA: Chest x-ray done this morning showed basilar area of atelectasis, infiltration. There were no pleural effusions. IMPRESSION: 1. Acute tracheobronchitis that has been treated with IV Zosyn, which has been discontinued today by the primary care attending. The patient was started on doxycycline. 2. The patient with peripheral edema, fluid overload or congestive heart failure, combination of both. 3. Resolution of acute kidney injury on this admission as well. 4. Overall severe debility. PLAN OF MANAGEMENT: The patient has been given one dose of diuretics. Monitor the patient's respiratory status, current antibiotics. Bronchodilators administration. Continue the BiPAP use for respiratory failure, managed with acute hypercapnic/hypoxemic respiratory failure. The oxygen requirement has been gradually decreased, usual care. [place], [place] PROGRESS NOTE NAME: MARVIN CABELLO UNIT #: [id number] ROOM: 421 DOCTOR: ELISSA RAINES MD BIRTHDATE: [birth year] ELISSA CHRISTINA MD CM:JOELLEN [phone] ELISSA AGUILA MD 05/29/19 1014 interface
--- NOTE | ~2019-05-12 | PR ---
[place], [place] PROGRESS NOTE [id number] UNIT #: [id number] ROOM: 421 DOCTOR: OCTAVIA MEJIA MD BIRTHDATE: [birth year] DOS: 05/16/2019 SUBJECTIVE: The patient is breathing much better, still quite weak. OBJECTIVE: VITAL SIGNS: Blood pressure 116/60, heart rate 84 beats per minute, breathing 15-22 times per minute, temperature 98 degrees Fahrenheit. GENERAL APPEARANCE: The patient is alert and oriented x 3, in no visible distress. HEENT AND NECK: Exam within normal limits. CARDIOVASCULAR SYSTEM: Heart rate is regular in rate and rhythm. S1 and S2 normally audible. LUNGS: Clear to auscultation. ABDOMEN: Soft, nontender. Morbid obesity. No obvious organomegaly. Bowel sounds are present. EXTREMITIES: Without significant cyanosis or edema. Generalized weakness. IMPRESSION: 1. Acute on chronic respiratory failure. The patient doing better after extubation, breathing better. 2. Acute exacerbation of chronic obstructive pulmonary disease with chronic respiratory failure, improved with treatment. 3. Acute pneumonia with Proteus mirabilis, treated with antibiotics. 4. Acute kidney failure, recovered with hydration. 5. Severe protein calorie malnutrition. Overall poor prognosis in the long run. 6. Advanced adult failure to thrive and obesity. The patient working with physical therapy. 7. Morbid obesity. The patient working with dietary. 8. Mixed hyperlipidemia, treated and followed. 9. Severe hypotension related to sepsis, improved with hydration. OCTAVIA MEJIA MD CM:PNTRANS [phone] OCTAVIA MEJIA MD 05/17/197 interface
--- NOTE | ~2019-05-12 | PR ---
[place], [place] PROGRESS NOTE NAME: MARVIN CABELLO UNIT #: [id number] ROOM: 421 DOCTOR: ELISSA RAINES MD BIRTHDATE: [birth year] DOS: 05/18/2019 SUBJECTIVE: The patient was noted comfortable at this time, resting in his room. The patient is sitting on the chair, eating his breakfast. The patient's respiratory symptom continues to resolve gradually, still noted debility, receiving physical therapy on this hospitalization as well. There were no symptoms of chest pain reported by the patient. OBJECTIVE: VITAL SIGNS: Low grade fever of 99.5 degrees Fahrenheit was noted, respiratory rate of 18, heart rate 75, blood pressure 123/71. Pulse oxygen saturation recorded on 3 liters nasal cannula 96% saturation. HEENT: Examination shows head was atraumatic. Eyes nonicterus. NECK: Supple. CARDIOVASCULAR: S1, S2 audible. LUNGS: No wheeze or crackles. ABDOMEN: Soft, nontender. EXTREMITIES: Resolving edema. IMPRESSION: 1. The patient with improving acute hypercapnic and hypoxemic respiratory failure. 2. 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 3. Morbid obesity. 4. Exacerbation of obstructive sleep apnea disorder, will be requiring further outpatient assessment. 5. Severe debility. PLAN OF MANAGEMENT: No changes in plan of care at this time. Continue the patient's current therapy as ongoing. Other plan of management and changes in treatment to be made based on progression of the illness. [place], [place] PROGRESS NOTE NAME: MARVIN CABELLO UNIT #: [id number] ROOM: 421 DOCTOR: ELISSA RAINES MD BIRTHDATE: [birth year] ELISSA CHRISTINA MD CM:PNTRANS [phone] ELISSA AGUILA MD 05/29/19 1013 interface
[~2019-05-12 05:08] MED LIST changes: -BUMETANIDE1 MG PO; -CARVEDILOL12.5 MG PO; -DOXYCYCLINE100 M3 PO; -HYDROCODONE-AC1 EAC2 PO; -IBU600 M1 PO; -LISINOPRIL20 MG PO; -MAGNESIUM OXID400 MG PO; -MECLIZINE HCL25 M2 PO; -PREDNISONE5 MG PO; -PROTONIX40 MG PO; -VENTOLIN 02.5 MG/3 M NEB; -XARE20MG PO; -ZESTORETIC 20-1 EACH PO
--- NOTE | 2019-05-12 05:20 | NUR ---
ABRASIONS NOTED TO BILATERAL KNEES.
--- NOTE | 2019-05-12 05:36 | NUR ---
PATIENT WEARING A GOLD CHAIN COLORED NECKLACE, WAS REMOVED AND GIVEN TO PATIENT .
[2019-05-12] MEDS ORDERED: CARVEDILOL12.5 MG PO (05:44)
[2019-05-12] MEDS ORDERED: BUMETANIDE1 MG PO (05:44)
[2019-05-12] MEDS ORDERED: HYDROCODONE-AC1 EAC2 PO (05:44)
[2019-05-12] MEDS ORDERED: MECLIZINE HCL25 M2 PO (05:46)
[2019-05-12] MEDS ORDERED: ZESTORETIC 20-1 EACH PO (05:46)
[2019-05-12 05:50] LABS: ABG HCO3 21.5 mmol/l (22-26)
[2019-05-12 05:57] LABS: ABG BASE EXCESS -9.4 mmol/L (-2.0-2.0); ARTERIAL BLOOD GAS PCO2 72.4 mmHg (35-45); ARTERIAL BLOOD GAS PH 7.104 (7.35-7.45)
--- NOTE | 2019-05-12 05:57 | NUR ---
CRITICAL LAB TAKEN, PH 7.104, PCO2 72.4, NOTIFIED.
--- NOTE | 2019-05-12 06:02 | NUR ---
Pt placed on NIV 16 at 40% per DR. Lopez and ABG results. Pt tolerating well with spo2: 93% and a VE of 15.2. Will continue to monitor.
[2019-05-12 06:09] LABS: BASO # 0.1 10*3/uL (0.0-0.1); BASO % 0.5 % (0.0-1.0); EOS # 0.2 10*3/uL (0.0-0.4); EOS % 1.4 % (1.0-4.0); HEMATOCRIT 43.5 % (42.0-52.0); HEMOGLOBIN 13.8 g/dl (14.0-18.0); LYMPH # 1.1 10*3/uL (1.3-4.4); LYMPH % 7.8 % (27.0-41.0); MEAN CELL VOLUME 98.2 fl (80.0-94.0); MEAN CORPUSCULAR HGB 31.2 pg (27.0-31.0); MEAN CORPUSCULAR HGB CONC 31.7 g/dl (33.0-37.0); MEAN PLATELET VOLUME 11.4 fl (9.6-12.3); MONO # 0.6 10*3/uL (0.1-1.0); MONO % 4.4 % (3.0-9.0); NEUT # 11.9 10*3/uL (2.3-7.9); NEUT % 85.3 % (47.0-73.0); PLATELET COUNT AUTOMATED 207 10*3/uL (130-400); RED BLOOD COUNT 4.43 10*6/uL (4.50-5.90)
[2019-05-12 06:23] LABS: INTERNATIONAL NORM RATIO 0.9 (2.0-3.5)
[2019-05-12 06:28] LABS: ALBUMIN 3.1 gm/dl (3.1-4.5); BUN 147 mg/dl (7-24); CHLORIDE 99 mmol/L (98-107); CREATININE 4.78 mg/dL (0.70-1.30); SGOT/AST 18 IU/L (3-35); SGPT/ALT 45 U/L (12-78); SODIUM 132 mmol/L (136-145); TOTAL PROTEIN 7.6 gm/dL (6.4-8.2)
[2019-05-12 06:30] LABS: ALKALINE PHOSPHATASE 90 U/L (45-117)
--- NOTE | 2019-05-12 06:30 | NUR ---
CRITICAL LAB, POTASSIUM 6.6
[2019-05-12 06:32] LABS: POTASSIUM 6.6 mmol/L (3.5-5.1); TROPONIN I < 0.015 ng/ml (<0.045)
--- NOTE | 2019-05-12 08:54 | NUR ---
PT MEDICATED WITH ATIVAN 2MG SLOW PUSH IV FOR AGITATED BEHAVIOR. FAMILY AT BEDSIDE PT TRYING TO PULL MCMAHON CATHETER OUT, PULLING OFF MONITOR CABLES, TRYING TO PULL OFF BIBAP MASK.
--- NOTE | 2019-05-12 09:09 | NUR ---
A 69, admitted to ICCU, under the services of Dr. JACKIE TROTTER,OCTAVIA Beal with a diagnosis of RHABDO. Chief complaint is PER FALLING A LOT SINCE DC HOME FROM [place] ON NEW MEDICATIONS & TODAY SHE COULD NOT GET HIM UP. Patient arrived via stretcher from ER. Monitor applied. Initial assessment completed. Vital signs taken and recorded. DR. JACKIE TROTTER,OCTAVIA Beal notified of admission to the unit. Orders received. See assessment for past medical history, medications and allergies. Patient and/or family oriented to unit. [facility] ICCU visitation policy reviewed. IV started right hand with #22 protective cath after 1 attempts. Site prepped with Chloroprep. Sterile dressing applied. Patient tolerated procedure well. MCMAHON PATENT FOR STRAW URINE DENNIS CHURCH
[2019-05-12] MEDS ORDERED: IBU600 M1 PO (09:53)
--- NOTE | 2019-05-12 10:18 | NUR ---
DR MEJIA NOTIFIED OF ADMISSION TO ICCU, CURRENT VITAL SIGNS. ORDERS RECEIVED.
--- NOTE | 2019-05-12 10:36 | NUR ---
ABG UNABLE TO OBTAIN LEFT RADIAL PRESSURE AND BANDAGE APPLIED
[2019-05-12 10:50] LABS: ABG HCO3 25.3 mmol/l (22-26); ABG O2 SATURATION 92.7 % (95-97)
[2019-05-12 10:53] LABS: ARTERIAL BLOOD GAS PH 7.047 (7.35-7.45)
[2019-05-12 10:54] LABS: ABG BASE EXCESS -8.1 mmol/L (-2.0-2.0); ARTERIAL BLOOD GAS PCO2 95.8 mmHg (35-45)
--- NOTE | 2019-05-12 10:55 | NUR ---
ATTEMPTED TO CALL DR CHRISTINA WITH CONSULT AND RESULT OF ABG'S WHICH ARE CRITICAL. HE'S IN HOUSE AND WILL ARRIVE IN ICCU SOON.
--- NOTE | 2019-05-12 11:07 | NUR ---
DR CHRISTINA HERE, TALKING WITH FAMILY ABOUT OPTIONS.
--- NOTE | 2019-05-12 11:33 | NUR ---
DR CHRISTINA TALKED WITH PT'S FAMILY. ANESTHESIA IS COMING TO INTUBATE THE PATIENT.
[2019-05-12 12:01] LABS: CREATININE 5.74 mg/dL (0.70-1.30)
[2019-05-12 12:03] LABS: POTASSIUM 7.3 mmol/L (3.5-5.1)
[2019-05-12 13:03] LABS: BILIRUBIN NEGATIVE (NEGATIVE); BLOOD NEGATIVE (NEGATIVE); CLARITY SL CLOUDY (CLEAR); COLOR YELLOW (YELLOW); GLUCOSE NEGATIVE (NEGATIVE); KETONE NEGATIVE (NEGATIVE); LEUKO ESTERASE NEGATIVE (NEGATIVE); NITRITE NEGATIVE (NEGATIVE); PH 5.5 (5.0-9.0); SPECIFIC GRAVITY >= 1.030 (1.005-1.030); UROBILINOGEN 0.2 E.U./dl (0.2-1.0)
[2019-05-12 13:12] LABS: BACTERIA 4+
--- NOTE | 2019-05-12 13:29 | NUR ---
APPROX 1210 SPO2 IN MID 90S ON BIPAP PT WAS UNRESPONSIVE ANESTHESIA GRIS AUBRIE INTUBATED PT WITH 8.0 ETT SECURED AT 24CM ETCO2 WAS IN 60S POST INTUBATION PT PLACED ON VENTILATOR AC 18 TV 600 O2 50% PEEP 8
[2019-05-12 14:44] LABS: ABG BASE EXCESS -6.4 mmol/L (-2.0-2.0); ABG HCO3 21.8 mmol/l (22-26); ABG O2 SATURATION 96.7 % (95-97); ARTERIAL BLOOD GAS PCO2 55.7 mmHg (35-45); ARTERIAL BLOOD GAS PH 7.211 (7.35-7.45); ARTERIAL BLOOD GAS PO2 83.6 mmHg (80-90)
--- NOTE | 2019-05-12 15:07 | NUR ---
GRIS ALFRED FROM ANESTHESIA WAS HERE, PT WAS INTUBATED WITH A #8 ETT, USING ROCURONIUM AND PROPOFOL ONLY. A #16 OGT WAS PLACED AT THAT. A RT RADIAL ARTERIAL LINE WAS PLACED WITH GOOD WAVE FORM AND DYNAMIC RESPONSE. A RIJ MLC WAS PLACED. A STAT PORTABLE CXR WAS DONE FOR PLACEMENT. AFTER INTUBATION HIS BP DROPPED BRIEFLY AND WAS TREATED WITH INCREASED LEVOPHED AND A DOSE OF NEOSYNEPHRINE. HIS BP NOW IN 90'S. DIPRIVAN HAS BEEN STARTED AND TITRATED TO 15MCG/KG/MIN WITH ADEQUATE SEDATION. FAMILY IN TO SEE PATIENT. MULTIPLE EXPLANATIONS TO THEM. DR LI HAS VISITED AND IV FLUID BOLUSES CONTINUE. SEE ALL APPROPRIATE INTERVETNTIONS.
[2019-05-12 16:22] LABS: CREATININE 4.42 mg/dL (0.70-1.30)
[2019-05-12 16:23] LABS: POTASSIUM 5.2 mmol/L (3.5-5.1)
[2019-05-12 16:41] LABS: PHOSPHOROUS 6.3 mg/dL (2.5-4.9)
--- NOTE | 2019-05-12 17:22 | NUR ---
REPEAT POTASSIUM WAS 5.[address] LI AWARE. DR CHRISTINA CALLED IN AND UPDATED ON CONDITION. FAMILY HAVE BEEN IN AND OUT. MULTIPLE EXPLANATIONS TO MULTIPLE FAMILY MEMBERS.
[2019-05-12 17:32] LABS: URINE CREATININE RANDOM 34.9 mg/dL
--- NOTE | 2019-05-12 18:22 | NUR ---
ABGS FROM ART LINE.
[2019-05-12 18:25] LABS: ABG BASE EXCESS -5.4 mmol/L (-2.0-2.0); ABG O2 SATURATION 98.4 % (95-97); ARTERIAL BLOOD GAS PCO2 48.3 mmHg (35-45); ARTERIAL BLOOD GAS PH 7.263 (7.35-7.45)
--- NOTE | 2019-05-12 18:43 | NUR ---
DR CHRISTINA CALLED AND UPDATES GIVEN. FAMILY IN AND UPDATED.
--- NOTE | 2019-05-12 19:00 | NUR ---
ASSUMED CARE FROM SABINO GONG. PATIENT APPEARS APPROPRIATELY SEDATED AND RESPONDS TO VERBAL AND TACTILE STIMULI. PATIENT LUNGS SOUND CLEAR AND SYMMETRICAL. ARTERIAL LINE MAINTAINING GOOD WAVEFORM AND ADEQUATE PRESSURES BEING MAINTAINED ON LEVOPHED. PATIENTS' FAMILY AT THE BEDSIDE AT THIS TIME. SOFT RESTRAINTS APPLIED TO PREVENT EXTUBATION. NSR ON ANTHROPOLOGY FACULTY MEMBER. HOB ELEVATED, COMPRESSION STOCKINGS APPLIED. SEE ASSESSMENT.
--- NOTE | 2019-05-12 20:30 | NUR ---
LEVOPHED INCREASED TO 8MCG AT THIS TIME TO SUSTAIN A MAP >65.
--- NOTE | 2019-05-12 23:15 | NUR ---
NOTIFIED DR. MEJIA THAT PATIENT GASTRIC RESIDUAL WAS APPROXIMATELY 400CC UPON ASPIRATION. TUBE FEEDING WAS STOPPED. ORDERS RECEIVED TO HOLD OFF ON TUBE FEEDING AND WILL BE REASSESSED TOMORROW MORNING.
[2019-05-13] VITALS (96 sets, daily range): BP systolic 81–123; BP diastolic 25–83
--- NOTE | 2019-05-13 02:35 | NUR ---
COMPLETE BED BATH AND BED CHANGE PERFORMED. PATIENT TOLERATED WELL. MCMAHON CATHETER SECURED TO LEFT LEG.
[2019-05-13 06:12] LABS: ABG BASE EXCESS -2.5 mmol/L (-2.0-2.0); ABG HCO3 22.4 mmol/l (22-26); ABG O2 SATURATION 98.7 % (95-97); ARTERIAL BLOOD GAS PCO2 42.6 mmHg (35-45); ARTERIAL BLOOD GAS PH 7.343 (7.35-7.45)
[2019-05-13 06:14] LABS: ALBUMIN 2.3 gm/dl (3.1-4.5); CREATININE 2.53 mg/dL (0.70-1.30); PHOSPHOROUS 3.8 mg/dL (2.5-4.9); POTASSIUM 4.7 mmol/L (3.5-5.1); TOTAL PROTEIN 5.9 gm/dL (6.4-8.2)
[2019-05-13 06:20] LABS: BASO % 0.2 % (0.0-1.0); EOS # 0.2 10*3/uL (0.0-0.4); EOS % 1.9 % (1.0-4.0); LYMPH # 1.4 10*3/uL (1.3-4.4); LYMPH % 15.4 % (27.0-41.0); MEAN CELL VOLUME 95.8 fl (80.0-94.0); MEAN CORPUSCULAR HGB CONC 32.4 g/dl (33.0-37.0); MEAN PLATELET VOLUME 11.4 fl (9.6-12.3); MONO # 0.5 10*3/uL (0.1-1.0); MONO % 5.2 % (3.0-9.0); NEUT # 6.9 10*3/uL (2.3-7.9); NEUT % 76.9 % (47.0-73.0); PLATELET COUNT AUTOMATED 146 10*3/uL (130-400); RED BLOOD COUNT 3.58 10*6/uL (4.50-5.90)
[2019-05-13 06:29] LABS: HEMATOCRIT 34.3 % (42.0-52.0); HEMOGLOBIN 11.1 g/dl (14.0-18.0)
--- NOTE | 2019-05-13 08:57 | NUR ---
Full assessment. No spontaneous opening of eyes. Cough and gag intact. OGT secure to nepro. Placement verification w/ air bolus. ETT secure. Oral mucosa moist , Oral care q2h. ETT shifted to center. Repositioned to rt.
--- NOTE | 2019-05-13 15:20 | NUR ---
1200 Dr. Bill in to evaulate ., spoke at length w/ sister as to Plan of care, and prognosis. 1500 Dr. Selby in to evaulate and spoke w/ pt's sig other. Remains sedated , awakens easily and opens eyes spontaneously. Levephed maintained at 3 mcg.
--- NOTE | 2019-05-13 16:38 | NUR ---
Dressing change to A-line as it was becoming positional. Family in off and on all day. Dr. Selby returned , Notified of pt. c/o of discomfort. and need for foot care. Orders recieved.
--- NOTE | 2019-05-13 16:43 | NUR ---
Podiatry was notified of consult.
--- NOTE | 2019-05-13 18:48 | NUR ---
Dr. Singer in and toe nail care complete recommended Lac-hydrin lotion. ordered per Dr. Selby.
--- NOTE | 2019-05-13 18:48 | NUR ---
Medicated for pain T 1700. effective , resting comfortably at this trime. Family in to visit.
[2019-05-14] VITALS (21 sets, daily range): BP systolic 95–137; BP diastolic 21–70
--- NOTE | 2019-05-14 03:16 | NUR ---
LEVOPHED OFF. MAP OF 65-75 AT 1 AILYN FOR 2 HOURS PRIOR TO TURNING OFF. WILL CONTINUE TO MONITOR. ADRIANE WORKMAN RN
[2019-05-14 06:02] LABS: BASO % 0.6 % (0.0-1.0); EOS # 0.3 10*3/uL (0.0-0.4); EOS % 4.3 % (1.0-4.0); HEMATOCRIT 33.9 % (42.0-52.0); HEMOGLOBIN 10.8 g/dl (14.0-18.0); LYMPH # 1.6 10*3/uL (1.3-4.4); LYMPH % 23.4 % (27.0-41.0); MEAN CELL VOLUME 96.6 fl (80.0-94.0); MEAN CORPUSCULAR HGB 30.8 pg (27.0-31.0); MEAN CORPUSCULAR HGB CONC 31.9 g/dl (33.0-37.0); MEAN PLATELET VOLUME 11.6 fl (9.6-12.3); MONO # 0.5 10*3/uL (0.1-1.0); MONO % 6.6 % (3.0-9.0); NEUT # 4.4 10*3/uL (2.3-7.9); NEUT % 64.4 % (47.0-73.0); PLATELET COUNT AUTOMATED 133 10*3/uL (130-400); RED BLOOD COUNT 3.51 10*6/uL (4.50-5.90); RED CELL DISTRI WIDTH 14.3 % (0-14.5); WHITE BLOOD COUNT 6.8 10*3/uL (4.8-10.8)
[2019-05-14 06:04] LABS: ALBUMIN 2.3 gm/dl (3.1-4.5); ALKALINE PHOSPHATASE 67 U/L (45-117); CHLORIDE 110 mmol/L (98-107); CREATININE 1.35 mg/dL (0.70-1.30); PHOSPHOROUS 2.5 mg/dL (2.5-4.9); POTASSIUM 4.5 mmol/L (3.5-5.1); SGOT/AST 25 IU/L (3-35); SGPT/ALT 33 U/L (12-78); SODIUM 144 mmol/L (136-145); TOTAL PROTEIN 5.9 gm/dL (6.4-8.2)
[2019-05-14 06:05] LABS: BUN 50 mg/dl (7-24)
--- NOTE | 2019-05-14 06:09 | NUR ---
CHANGE IN WEIGHT JUSTIFIED BY BED EXTENSION PLACED AT END OF BED PRIOR DAY AFTER WEIGHT WAS OBTAINED. NEW WEIGHT REFLECTS INCREASE WITH BED EXTENSION ADDED.
--- NOTE | 2019-05-14 07:45 | NUR ---
PHYSICAL THERAPY Nursing screen received. PT orders also received. Thank you. Gillian Ruvalcaba,PT
--- NOTE | 2019-05-14 07:50 | NUR ---
SEDATED ON VENT. REMAINS ON FIO2 30% OXYGEN. AFEBRILE. NSR NOTED ON HEART MONITOR. HEART RATE 70'S. INSPIRATORY WHEEZES HEARD IN LUNG GAMINO. MCMAHON DRAINING CLEAR YELLOW URINE. TUBI-NUCLEAR PLANT INSTRUMENT TECHNICIAN INTACT TO BILATERAL LOWER LEGS. OGT IN PLACE AND VERIFIED BY AIR BOLUS. PULMOCARE INFUSING AT 20CC/HR WITHOUT ANY RESIDUAL
--- NOTE | 2019-05-14 08:29 | NUR ---
PHYSICAL THERAPY Orders received. Patient is intubated. Thank you for this referral. Gillian Ruvalcaba,PT
[2019-05-14 08:49] LABS: ABG BASE EXCESS 0.2 mmol/L (-2.0-2.0); ABG HCO3 24.6 mmol/l (22-26); ABG O2 SATURATION 99.7 % (95-97); ARTERIAL BLOOD GAS PCO2 40.5 mmHg (35-45); ARTERIAL BLOOD GAS PH 7.399 (7.35-7.45)
--- NOTE | 2019-05-14 08:51 | NUR ---
DR. CHRISTINA HERE TO SEE PATIENT
--- NOTE | 2019-05-14 09:01 | NUR ---
DR. CHRISTINA NOTIFIED OF ABG RESULTS. SEDATION TURNED OFF AND PLACED ON C-PAP 5; PS 10
--- NOTE | 2019-05-14 09:15 | NUR ---
PLACED ON C-PAP 5; PRESSURE SUPPORT 10.
[2019-05-14 11:28] LABS: ABG BASE EXCESS -1.3 mmol/L (-2.0-2.0); ABG HCO3 24.2 mmol/l (22-26); ABG O2 SATURATION 93.4 % (95-97); ARTERIAL BLOOD GAS PH 7.339 (7.35-7.45); ARTERIAL BLOOD GAS PO2 69.3 mmHg (80-90)
--- NOTE | 2019-05-14 11:35 | NUR ---
DR. CHRISTINA NOTIFIED OF ABG RESULTS. WILL KEEP ON C-PAP FOR 4 MORE HOURS AND THEN REPEAT ABG'S
--- NOTE | 2019-05-14 15:00 | NUR ---
Ems Coordinator in to see patient. He is currently intubated. Discharge plan undecided at this time.
[2019-05-14 15:29] LABS: ABG BASE EXCESS 0.1 mmol/L (-2.0-2.0); ABG HCO3 24.7 mmol/l (22-26); ABG O2 SATURATION 98.7 % (95-97); ARTERIAL BLOOD GAS PCO2 42.9 mmHg (35-45); ARTERIAL BLOOD GAS PH 7.381 (7.35-7.45)
--- NOTE | 2019-05-14 16:10 | NUR ---
EXTUBATED, PLACED ON BI-PAP 18/10. FIO2 30%. PULSE OX 97%,
--- NOTE | 2019-05-14 16:13 | NUR ---
Nursing screen received and chart review completed. Patient is intubated and not appropriated for OT. Thank you. Annalisa Casas OTR/L
[2019-05-14 18:16] LABS: ABG BASE EXCESS 1.2 mmol/L (-2.0-2.0); ABG HCO3 26.2 mmol/l (22-26); ABG O2 SATURATION 98.5 % (95-97); ARTERIAL BLOOD GAS PCO2 45.9 mmHg (35-45); ARTERIAL BLOOD GAS PH 7.376 (7.35-7.45)
--- NOTE | 2019-05-14 18:26 | NUR ---
DR. CHRISTINA NOTIFIED OF ABG RESULTS. ORDERS RECEIVED TO LEAVE ON BI-PAP MUCH POSSIBLE FOR THE NIGHT
--- NOTE | 2019-05-14 19:42 | NUR ---
Pt resting on BiPap 18/10 with and FiO2 of 30% watching TV. The mask is now an XL mask. It fits him much better with a small leak around his motley. Protecta gel will not stay with motley. Creates bigger leak. SpO2 96%. Will continue to leave on BiPap throughout night as tolerated. Alarms on and audible.
--- NOTE | 2019-05-14 20:22 | NUR ---
PT. RESTING IN BED, BIPAP ON ORDERED, 02 AT 30%. RIJ MLC INTACT. HEP LOCK IN SE ASYMPT. ART LINE IN RIGHT RADIAL INTACT. ABDOMEN SOFTLY DISTENDED AND MORBIDLY OBESE. DEPENDENT EDEMA NOTED. MCMAHON DRAINING A CLEAR YELLOW URINE. RESP. EASY AND REG, NO DISTRESS. ADRIANE WORKMAN RN
--- NOTE | 2019-05-14 21:08 | NUR ---
NORCO GIVEN ORDERED AT 2100 FOR COMPLAINTS OF BACK PAIN. WATER ALSO GIVEN FOR FIRST TIME SINCE EXTUBATION. PT. TOLERATED WELL. ADRIANE WORKMAN RN
--- NOTE | 2019-05-14 22:29 | NUR ---
MLC LAYING ON PATIENTS NECK, APPEARED LONGER IN LENGTH THEN PREVOUS DAY. DRESSING LOOSE, MLC WAS FOUND NOT TO BE SUTURED IN PLACE, UNABLE TO GET BLOOD RETURN FROM ANY OF THE PORTS. END OF MLC BEHIND PATIENTS BACK UPON REMOVAL OF DRESSING. NO BLEEDING NOTED FROM INSERTION SITE. MLC THROWN IN SHARPS AND NEW IF IN RIGHT HAND STARTED. HEP LOCK IN LEFT ANTICUBITAL AREA INTACT, FLUSHES WELL. ADRIANE WORKMAN RN
--- NOTE | 2019-05-14 22:41 | NUR ---
PT. GIVEN XANAX ORDERED AT 2148 FOR ANXIETY. PT. WANTS UP OUT OF BED. EXPLAINED TO PATIENT HE WAS JUST EXTUBATED A FEW HOURS AGO AND NEEDS TO GET REST AND WOULD BE OUT OF BED IN THE AM. REMAINS ANXIOUS BUT STATED NORCO MILDLY EFFECTIVE FOR BACK PAIN. ADRIANE WORKMAN RN
[2019-05-15] VITALS: BP 133/61
--- NOTE | 2019-05-15 03:10 | NUR ---
PT. INCONTINENT FOR LARGE AMT OF SOFT BM. ADRIANE WORKMAN RN
[2019-05-15 04:00] VITALS: BP 126/61
[2019-05-15 05:25] LABS: ALBUMIN 2.3 gm/dl (3.1-4.5); ALKALINE PHOSPHATASE 66 U/L (45-117); CHLORIDE 108 mmol/L (98-107); CREATININE 1.13 mg/dL (0.70-1.30); PHOSPHOROUS 2.2 mg/dL (2.5-4.9); POTASSIUM 4.5 mmol/L (3.5-5.1); SGOT/AST 35 IU/L (3-35); SGPT/ALT 38 U/L (12-78); SODIUM 142 mmol/L (136-145); TOTAL PROTEIN 6.3 gm/dL (6.4-8.2)
[2019-05-15 05:28] LABS: BUN 29 mg/dl (7-24)
[2019-05-15 05:52] LABS: BASO # 0.1 10*3/uL (0.0-0.1); BASO % 0.7 % (0.0-1.0); EOS # 0.4 10*3/uL (0.0-0.4); EOS % 5.7 % (1.0-4.0); HEMATOCRIT 34.6 % (42.0-52.0); HEMOGLOBIN 11.2 g/dl (14.0-18.0); LYMPH # 1.5 10*3/uL (1.3-4.4); LYMPH % 20.8 % (27.0-41.0); MEAN CELL VOLUME 96.6 fl (80.0-94.0); MEAN CORPUSCULAR HGB 31.3 pg (27.0-31.0); MEAN CORPUSCULAR HGB CONC 32.4 g/dl (33.0-37.0); MEAN PLATELET VOLUME 11.7 fl (9.6-12.3); MONO # 0.4 10*3/uL (0.1-1.0); MONO % 5.5 % (3.0-9.0); NEUT # 4.6 10*3/uL (2.3-7.9); NEUT % 66.6 % (47.0-73.0); PLATELET COUNT AUTOMATED 135 10*3/uL (130-400); RED BLOOD COUNT 3.58 10*6/uL (4.50-5.90); RED CELL DISTRI WIDTH 13.7 % (0-14.5)
[2019-05-15 08:00] VITALS: BP 122/69
--- NOTE | 2019-05-15 08:20 | NUR ---
Awake and alert. O2 changed over to NC at 4l, for breakfast. Breakfast ordered. C/o back pain chronic in nature. Taking po fluids well , diet advanced,
--- NOTE | 2019-05-15 08:30 | NUR ---
Used Car Make Ready Mechanic in to talk to patient. Patient states lives at home alone with hid girlfriend checking in on him multiple times a day and his daughter lives only a few blocks away. There are 4 steps in the home. Physician: Dr. Garrett Selby Pharmacy: [facility] health services: none Patient's level of ADLs: MINIMAL ASSIST Patient has working utilities: yes DME: cane, walker Follow-up physician's appointment after d/c: he prefers to make his own follow up appt after discharge Does patient want to access PORTAL?: no Discharge plan discussed with patient. He lives at home alone with his girlfriend of 17 years stopping by multiple times a day to check in on him. His daughter lives a few blocks away. He needs minimal assistance with his ADLs and ambulates with either a cane or a walker when outside of the house. In his house he holds onto furniture to move around. Discussed short term SNF and home health care services and at this time he refuses both. When medically stable he will be discharged to home. LEO JONES
--- NOTE | 2019-05-15 08:47 | NUR ---
Medicated for c/o chronic back pain[facility] States OK to [facility] to tele.
--- NOTE | 2019-05-15 10:22 | NUR ---
Medication effective to ease back pain, however pt. states he is never pain free. Assisted up to BSC for moderate soft BM, Then stating he wanted to return to bed for a nap. up w/ assist of 2 and a walker.
[2019-05-15 12:00] VITALS: BP 120/67
--- NOTE | 2019-05-15 12:29 | NUR ---
fAMILY IN TO VISIT.
--- NOTE | 2019-05-15 13:15 | NUR ---
Patient requested to have his girlfriend become his POA. Brought MPOA and living will paperwork to ICU. Explained to girlfriend how to complete paperwork and she states she is aware of the process as she had MPOA for her father. Patient is on bipap until 3pm. Will follow up at that time.
--- NOTE | 2019-05-15 13:45 | NUR ---
PHYSICAL THERAPY PAtient on BiPAp until at least 3pm. Gillian Ruvalcaba,PT
--- NOTE | 2019-05-15 14:12 | NUR ---
Medicated for anxiety prior to Bi-Pap placement. Tolerating well , asleep.
--- NOTE | 2019-05-15 14:47 | NUR ---
Patient not available for Occupational Therapy until after bipap treatment ends at 3:30 pm. Annalisa Casas OTR/l
--- NOTE | 2019-05-15 15:07 | NUR ---
Patient remains on bipap at this time. Will complete MPOA and living will paperwork once patient is able to come off of bipap.
--- NOTE | 2019-05-15 15:42 | NUR ---
Spoke to patient regarding MPOA. Sister in room. Discussed how MPOA would work. If he was unable to make medical decisions for himself then whoever he designates as his MPOA will be able to make those medical decisions for him. He does have 2 adult children. He would like to hold off for now for having his girlfriend as his MPOA.
[2019-05-15 15:58] VITALS: BP 121/71
--- NOTE | 2019-05-15 16:04 | NUR ---
Family in to visit. Bi-Pap to off, placed on humidified O2 at 3L.
--- NOTE | 2019-05-15 16:51 | NUR ---
Medicated for chronic back pain.
[2019-05-15 20:00] VITALS: BP 125/63
--- NOTE | 2019-05-15 20:35 | NUR ---
DR MEJIA IN TO SEE PATIENT
--- NOTE | 2019-05-15 22:30 | NUR ---
PATIENT ASSISTED TO THE BEDSIDE COMMODE PER REQUEST TO MOVE BOWELS. ASSIST X2 WAS USED TO GET PATIENT ONTO TOILET. PATIENT IS EXTREMELY WEAK AND NEEDED REMINDED TO STNAD STRAIGHT SEVERAL TIMES THROUGHOUT PROCESS. SMALL BOWEL MOVEMENT. PATIENT WAS REPOSITIONED IN BED AFTER THIS. DENIES OTHER COMPLAINTS AT THIS TIME. RN WILL CONTINUE TO MONITOR
[2019-05-16] VITALS: BP 122/62
[2019-05-16 04:00] VITALS: BP 134/64
[2019-05-16 05:21] LABS: ALBUMIN 2.3 gm/dl (3.1-4.5); ALKALINE PHOSPHATASE 64 U/L (45-117); BUN 22 mg/dl (7-24); CHLORIDE 106 mmol/L (98-107); CREATININE 1.04 mg/dL (0.70-1.30); PHOSPHOROUS 2.8 mg/dL (2.5-4.9); POTASSIUM 4.9 mmol/L (3.5-5.1); SGOT/AST 36 IU/L (3-35); SGPT/ALT 37 U/L (12-78); SODIUM 141 mmol/L (136-145); TOTAL PROTEIN 6.4 gm/dL (6.4-8.2)
[2019-05-16 05:52] LABS: HEMATOCRIT 35.5 % (42.0-52.0); HEMOGLOBIN 11.4 g/dl (14.0-18.0); MEAN CELL VOLUME 96.5 fl (80.0-94.0); MEAN CORPUSCULAR HGB CONC 32.1 g/dl (33.0-37.0); MEAN PLATELET VOLUME 12.4 fl (9.6-12.3); PLATELET COUNT AUTOMATED 126 10*3/uL (130-400); RED BLOOD COUNT 3.68 10*6/uL (4.50-5.90); RED CELL DISTRI WIDTH 13.6 % (0-14.5); WHITE BLOOD COUNT 6.8 10*3/uL (4.8-10.8)
--- NOTE | 2019-05-16 06:47 | NUR ---
PATIENT REMAINS ON BIPAP, RESTING WITH EYES CLOSED. APPEARS TO BE SLEEPING. NO SIGNS OR SYMPTOMS OF DISTRESS. CALL LIGHT WITHIN REACH. RN WILL CONTINUE TO MONITOR
[2019-05-16 07:08] LABS: ATYPICAL LYMPHS 3 % (0-0); BASOPHILS 3 % (0-1); PLATELET SUFFICIENCY LOW (NORMAL); TOTAL CELLS COUNTED 100 #CELLS
--- NOTE | 2019-05-16 07:45 | NUR ---
UP TO BSC THEN RECLINER X 2 ASSIST WITH MINIMAL ASSIST PT ABLE TO STAND AND SIT UNASSISTED
[2019-05-16 08:00] VITALS: BP 108/78
--- NOTE | 2019-05-16 08:30 | NUR ---
Dental Claims Processor in to see patient. No new needs or request at this time. Discussed MPOA and he wishes not to complete at this time. Discussed short term SNF and home health care services and he refuses. When medically stable he will be discharged to home.
--- NOTE | 2019-05-16 11:45 | NUR ---
Called to room to discuss short term SNF. When provided with a list of facilities he chose [facility]. senior planner notified.
[2019-05-16 12:00] VITALS: BP 125/61
--- NOTE | 2019-05-16 12:06 | NUR ---
PHYSICAL THERAPY Patient evaluated In iccu, full evaluation to follow. Continue with PT as per plan of care with fall, 02 and acute debility precautions. Will require SNF. PAtient is moderate complexity via chart review, tests and evaluation: [id number]. Thank you for this referral. Gillian Ruvalcaba,PT
--- NOTE | 2019-05-16 12:27 | NUR ---
Patient requested referral to [facility]. Contacted facility and faxed referral. Requires 3 night stay (already completed). Waiting on review/acceptance.
--- NOTE | 2019-05-16 13:27 | NUR ---
Occupational Therapy evaluation completed in ICCU with full eval to follow. PRecautions include fall risk,O2 use,IV UE, high complexity level 07155 via chart review, testing and evaluation. Recommend OT per pOC and SNF to enable return home at prior level of functional independence. Thank you for this referral. Annalisa Casas OTR/l
--- NOTE | 2019-05-16 13:33 | NUR ---
BACK TO BED FOR NAP NEW IV TO LEFT HAND
--- NOTE | 2019-05-16 14:35 | NUR ---
HELPED TO REPOSITION TO RIGHT SIDE, AVINASH FOR BACK PAIN
[2019-05-16 16:00] VITALS: BP 116/30
--- NOTE | 2019-05-16 16:35 | NUR ---
AVINASH EFFECTIVE, PT UP TO RECLINER WITH WALKER AND MINIMAL ASSIST
--- NOTE | 2019-05-16 18:16 | NUR ---
DR HAMILTON NOTIFIED OF CONSULT
--- NOTE | 2019-05-16 19:10 | NUR ---
Shift chart check completed.24 HR chart check completed.
[2019-05-16 20:00] VITALS: BP 128/73
--- NOTE | 2019-05-16 20:44 | NUR ---
SPOKE WITH DR. MEJIA- TRANSFER ORDER TO [facility] NOTED.
--- NOTE | 2019-05-16 20:51 | NUR ---
ON ASSESSMENT PATIENT IS UP IN CHAIR, ALERT AND ORIENTED. NO RESPIRATORY DISTRESS. HE WAS ASSISTED TO BSC FOR SMALL BROWN, SOFT BM. SEE ALL APPROPRIATE INTERVENTIONS.
--- NOTE | 2019-05-16 21:24 | NUR ---
VICODIN FOR BACK PAIN "8"/. PT CLAIMS TO "NEVER" BE PAIN FREE. TRANSFERRED IN STABLE CONDITION VIA BED TO [facility] WITH ALL OF HIS BELONGINGS. REPORT TO
--- NOTE | 2019-05-16 21:31 | NUR ---
REPORT OBTAINED FROM SABINO TEAGUE RN. PATIENT IS RESTING IN BED WITH EASY AND REGULAR RESPERS ON 3L VIA NASAL CANNULA. ASSESSMENT IS COMPLETE WITH NO C/O OR S/S OF DISTRESS NOTED AT THIS TIME. BED IS LOW, LOCKED, ALARMED, AND CALL LIGHT IS WITHIN REACH. SEE SHIFT ASSESSMENT.
--- NOTE | 2019-05-16 21:40 | NUR ---
PT CALLED HIS GIRLFRIEND AND LET HER KNOW HE'D BEEN MOVED.
[2019-05-17] VITALS: BP 121/64
--- NOTE | 2019-05-17 04:00 | NUR ---
PATIENT IS RESTING IN BED WITH EASY AND REGULAR RESPERS ON 30% BIPAP. CALL LIGHT IS WITHIN REACH.
[2019-05-17 06:34] LABS: ALBUMIN 2.4 gm/dl (3.1-4.5); BUN 23 mg/dl (7-24); CHLORIDE 104 mmol/L (98-107); POTASSIUM 4.5 mmol/L (3.5-5.1); SODIUM 140 mmol/L (136-145)
[2019-05-17 06:36] LABS: ALKALINE PHOSPHATASE 64 U/L (45-117); CREATININE 1.05 mg/dL (0.70-1.30); SGOT/AST 34 IU/L (3-35); SGPT/ALT 41 U/L (12-78); TOTAL PROTEIN 6.5 gm/dL (6.4-8.2)
[2019-05-17 06:42] LABS: BASO % 0.6 % (0.0-1.0); EOS # 0.3 10*3/uL (0.0-0.4); EOS % 4.3 % (1.0-4.0); HEMATOCRIT 36.7 % (42.0-52.0); HEMOGLOBIN 11.5 g/dl (14.0-18.0); LYMPH # 1.5 10*3/uL (1.3-4.4); MEAN CELL VOLUME 98.1 fl (80.0-94.0); MEAN CORPUSCULAR HGB 30.7 pg (27.0-31.0); MEAN CORPUSCULAR HGB CONC 31.3 g/dl (33.0-37.0); MEAN PLATELET VOLUME 11.5 fl (9.6-12.3); MONO # 0.3 10*3/uL (0.1-1.0); MONO % 4.6 % (3.0-9.0); NEUT # 4.2 10*3/uL (2.3-7.9); NEUT % 65.6 % (47.0-73.0); PLATELET COUNT AUTOMATED 156 10*3/uL (130-400); RED BLOOD COUNT 3.74 10*6/uL (4.50-5.90); RED CELL DISTRI WIDTH 13.4 % (0-14.5); WHITE BLOOD COUNT 6.3 10*3/uL (4.8-10.8)
--- NOTE | 2019-05-17 07:34 | NUR ---
PATIENT IS UP IN CHAIR AT THIS TIME. CALL LIGHT IS WITHIN REACH.
[2019-05-17 08:00] VITALS: BP 117/67
--- NOTE | 2019-05-17 09:00 | NUR ---
C/O PAIN TO BACK OF 04/23. GIVEN NORCO AT THIS TIME. WILL CONT TO MONITOR. CALL LIGHT IN REACH.
--- NOTE | 2019-05-17 10:00 | NUR ---
NORCO EFF PER PT/
[2019-05-17 12:00] VITALS: BP 118/65
--- NOTE | 2019-05-17 12:04 | NUR ---
OT NOTE Pt was seen this P.M. 1:1 for 15 minute OT session. Upon arrival pt was sitting upright in the recliner. Pt identified by name and and had no complaints at this time. Pt presented to therapy with continuous 3L-O2 via NC which he remained on throughout entire session. Pt completed multiple sit to stand transfers from chair level with Chanda and use of w/w for UE support. Challenged pt's static standing tolerance needed for increased I in self care tasks and functional transfers. Pt was able to tolerate aprox 2-3 minutes at a time before sitting due to faitgue. Educated pt on sitting technique due to "flopping" into chair and causing back pain. Pt then re trialed and had good carry over. Pt was left sitting upright in the recliner with call light in hand, tray table in place, and phone in reach. BENITEZ Tompkins/Ruy
--- NOTE | 2019-05-17 12:05 | NUR ---
PHYSICAL THERAPY Patient seen this am 1:1 for therapy visit and was sitting up in bedside chair with several family visitors upon therapist arrival. Patient presents with continuous 02-3L via NC and IV treatment. Patient reports increased c/o chronic LBP and transfers sit to stand, MIN A, requiring several rocking motion to complete transfer. Patient educated on improved transfer technique, including increased use of B UE when sitting down to avoid "plopping" which puts increased strain on low back muscles. Patient tolerated several minutes static stand each trial and returned to bedside chair with call light, tray table and telephone. Will continue per POC as tolerated, total treatment time 14 minutes. Nathan Morales, COMPLEX DIRECTOR
[2019-05-17 16:00] VITALS: BP 122/87
[2019-05-17 20:00] VITALS: BP 124/71
[2019-05-18] VITALS: BP 123/71
--- NOTE | 2019-05-18 07:15 | NUR ---
BEDSIDE REPORT OBTAINED FROM CHILO-RN. PATIENT IS RESTING QUIETLY, EYES CLOSED. NO DISTRESS NOTED, RESP ARE ERND ON 3L NC. BED IS LOCKED IN LOWEST POSITION, ALARM MAINTAINED. CALL LIGHT WITHI NREACH.
--- NOTE | 2019-05-18 07:34 | NUR ---
AT APPROXIMATELY 0100 AM PATIENTS HEART RATE WAS STEADY IN THE 140'S. STAT EKG ORDERED AND VALSALVA MANEUVER ATTEMPTED WITH NO RESULTS. DR. ALVAREZ CONTACTED AT THIS TIME AND ORDERED ONE TIME DOSE OF 0.25MG IV DIGOXIN, AND REPEAT IF NOT EFFECTIVE. DIGOXIN GIVEN ORDERED AND PATIENTS HEART RATE IN THE 70'S-80'S THROUGHOUT THE REST OF THE NIGHT. PRN NORCO GIVEN AROUND 0315 FOR CHRONIC BACK PAIN WELL.
[2019-05-18 08:00] VITALS: BP 122/78
--- NOTE | 2019-05-18 08:18 | NUR ---
Faxed updated progress, OT, and PT notes to [facility] at [facility]. Waiting on review/acceptance.
--- NOTE | 2019-05-18 09:00 | NUR ---
Property Worker in to see patient. No new needs or request at this time. When medically stable and accepted by [facility] patient will be discharged to [facility]. master planner following.
[2019-05-18 12:00] VITALS: BP 96/77
--- NOTE | 2019-05-18 13:23 | NUR ---
PHYSICAL THERAPY CO-SIGN I approve of the Phyical Therapy notes written above. HALIMA PRIETO PT
--- NOTE | 2019-05-18 14:48 | NUR ---
Patient is able to go to [facility] tomorrow 05/19. Dr. Gunderson notified.
[2019-05-18 16:00] VITALS: BP 94/56
--- NOTE | 2019-05-18 16:51 | NUR ---
PRN PAIN MEDICATIONB GIVEN D/T PAIN 05/23 GENERALIZED WHOLE BODY. NO SIGNS OR SYMPTOMS OF DISTRESS.
[2019-05-18 20:00] VITALS: BP 118/70
[2019-05-19] VITALS: BP 103/61
--- NOTE | 2019-05-19 01:55 | NUR ---
24 HR chart check completed.
--- NOTE | 2019-05-19 07:54 | NUR ---
PATIENT MEDICATED WITH NORCO FOR C.O CHRONIC BACK PAIN 02/21. WILL MONITOR
[2019-05-19 08:00] VITALS: BP 116/62; BP 117/56
[2019-05-19] MEDS ORDERED: VENTOLIN 02.5 MG/3 M NEB (08:07)
[2019-05-19] MEDS ORDERED: XARE20MG PO (08:07)
[2019-05-19] MEDS ORDERED: PREDNISONE5 MG PO (08:07)
[2019-05-19] MEDS ORDERED: DOXYCYCLINE100 M3 PO (08:07)
[2019-05-19] MEDS ORDERED: MAGNESIUM OXID400 MG PO (08:07)
[2019-05-19] MEDS ORDERED: PROTONIX40 MG PO (08:07)
[2019-05-19] MEDS ORDERED: LISINOPRIL20 MG PO (08:12)
--- NOTE | 2019-05-19 08:54 | NUR ---
PATIENT STATED NORCO WAS EFFECTIVE FOR BACK PAIN
[2019-05-19 12:00] VITALS: BP 124/55
--- NOTE | 2019-05-19 15:15 | NUR ---
PATIENT MEDICATED WITH NORCO FOR C/O 8/ BACK PAIN. WILL MONITOR
[2019-05-19 16:00] VITALS: BP 94/56
[2019-05-19 20:00] VITALS: BP 100/59
[2019-05-20] VITALS: BP 96/50
--- NOTE | 2019-05-20 06:23 | NUR ---
PRN NORCO ADMINISTERED PRESCRIBED FOR 07/24 CHRONIC BACK PAIN. WILL CONTINUE TO MONITOR THE PT AND REASSESS. NO OTHER COMPLAINTS AT THIS TIME. CALL LIGHT IN REACH.
--- NOTE | 2019-05-20 07:14 | NUR ---
PT RESTING IN BED. NO SIGNS OF DISCOMFORT OR DISTRESS NOTED. RESPIRATIONS UNLABORED & REGULAR. CALL LIGHT IN REACH.
[2019-05-20 08:00] VITALS: BP 114/68; BP 122/58
--- NOTE | 2019-05-20 09:22 | NUR ---
Mahad contacted about [facility]. They will be in tomorrow 05-21-19 to get everything set up, because insurance approval isn't available on the weekend.
[2019-05-20 12:00] VITALS: BP 98/50
[2019-05-20 16:00] VITALS: BP 102/56
--- NOTE | 2019-05-20 16:06 | NUR ---
PATIENT MEDICATED WITH NORCO FOR C/O 05/23 BACK PAIN. WILL MONITOR
[2019-05-20 20:00] VITALS: BP 104/47
--- NOTE | 2019-05-20 21:54 | NUR ---
PATIENT MEDICATED WITH NORCO FOR COMPLAINTS OF PAIN. WILL CONTINUE TO MONITOR. CALL LIGHT IN REACH.
[2019-05-21] VITALS: BP 91/52
--- NOTE | 2019-05-21 05:23 | NUR ---
PATIENT MEDICATED WITH NORCO FOR COMPLAINTS OF BACK PAIN. WILL CONTINUE TO MONITOR. CALL LIGHT IN REACH.
[2019-05-21 06:30] LABS: BASO # 0.1 10*3/uL (0.0-0.1); BASO % 0.8 % (0.0-1.0); EOS # 0.2 10*3/uL (0.0-0.4); EOS % 3.3 % (1.0-4.0); HEMATOCRIT 38.5 % (42.0-52.0); HEMOGLOBIN 12.2 g/dl (14.0-18.0); LYMPH # 1.7 10*3/uL (1.3-4.4); LYMPH % 24.1 % (27.0-41.0); MEAN CORPUSCULAR HGB 31.4 pg (27.0-31.0); MEAN CORPUSCULAR HGB CONC 31.7 g/dl (33.0-37.0); MEAN PLATELET VOLUME 10.8 fl (9.6-12.3); MONO # 0.5 10*3/uL (0.1-1.0); MONO % 6.8 % (3.0-9.0); NEUT # 4.6 10*3/uL (2.3-7.9); NEUT % 64.6 % (47.0-73.0); PLATELET COUNT AUTOMATED 207 10*3/uL (130-400); RED BLOOD COUNT 3.89 10*6/uL (4.50-5.90); RED CELL DISTRI WIDTH 13.8 % (0-14.5); WHITE BLOOD COUNT 7.2 10*3/uL (4.8-10.8)
[2019-05-21 06:40] LABS: BUN 24 mg/dl (7-24); CHLORIDE 105 mmol/L (98-107); CREATININE 0.92 mg/dL (0.70-1.30); POTASSIUM 4.3 mmol/L (3.5-5.1); SODIUM 140 mmol/L (136-145)
[2019-05-21 08:00] VITALS: BP 94/50
--- NOTE | 2019-05-21 08:45 | NUR ---
OT NOTE Pt was seen this A.M. 1:1 for 25 minute OT session. Upon arrival pt was sitting upright in the recliner. Pt identified by name and and had no complaints at this time. Pt presented to therapy with continuous 2L-O2 via NC which he remained on throughout entire session. Pt completed sit to stand transfer from chair level with maxA and use of standard walker for UE support. Pt required education for proper hand placement for increased I in sit to stand transfers. Pt completed functional mobility into the bathroom with CGA and use of standard walker. There pt transferred on to standard commode with Chanda and use of grab bar for UE support. Clothing managment completed with Chanda and toilet hygiene completed with supervision while seated. Pt then transferred off standard commode with maxA and use of grab bar. Pt then stood sink side while washing his hands and face with CGA for safety. Throughout pt was educated on energy conservation and work simplification techniques for increased I. Pt verbalized understanding. Functional mobility completed back to the recliner with CGA. There he was left sitting upright with call light in hand, tray table in place, and phone in reach. Continue with rec D/C plan to SNF. MABLE Tompkins
--- NOTE | 2019-05-21 09:04 | NUR ---
PHYSICAL THERAPY Patient gives informed consent for treatment. Patient is on 2 liters of spO2 via nasal canula. Patient had report of R shoulder pain , which he says was caused by a torn rotator cuff. Dr. Gunderson is suppossed to order an MRI for the R shoulder. Patient transferred sit to stand with MAX A X 1 with verbal cues for pushing off the armrests of chair with hands. Patient stood at standard walker with SBA. Patient ambulated 20' x 2 with Standard Walker and CGA X 1 and 2 liters of spO2 via nasal canula. Patient had no LOB with gait. Patient is MAX A X 1 to 2 from a low chair. Patient transferred back to sitting in bedside chair with MOD A X 1. Patient was left in sitting in bedside chair with call light within reach and tray table with breakfast in front of patient. Patient was 1:1 with this DOCUMENT IMAGING MANAGER for 19 minutes total. LORE THOMPSON DOCUMENT IMAGING MANAGER
--- NOTE | 2019-05-21 10:47 | NUR ---
Notified [facility] patient is discharged, we are waiting on confirmation that [facility] has patients bipap in place before discharging to their facility.
--- NOTE | 2019-05-21 11:10 | NUR ---
PHYSICAL THERAPY CO-SIGN I approve of the Phyical Therapy notes written above. HALIMA PRIETO PT
--- NOTE | 2019-05-21 11:58 | NUR ---
Patient updated clinicals and therapy notes faxed for precert. waiting on auth.
[2019-05-21 12:00] VITALS: BP 108/50
--- NOTE | 2019-05-21 13:44 | NUR ---
MEDICATED WITH NORCO PER ORDER FOR C/O BACK PAIN.
--- NOTE | 2019-05-21 15:05 | NUR ---
Patient is discharged to [facility], transportation scheduled for 4:30 pm with Dema. NH, nursing notified.
--- NOTE | 2019-05-21 15:34 | NUR ---
CALLED [facility] FOR NURSE TO NURSE REPORT. SPOKE TO [employer] WHO TRANSFERED ME TO ANSWERING MACHINE X 2. LEFT MESSAGE TO CALL IF THEY WANTED REPORT AND LEFT MY CALL BACK NUMBER.
--- NOTE | 2019-05-21 16:38 | NUR ---
AMBULANCE HERE FOR PATIENT TRANSPORT NO CALL BACK FROM [facility] WILL ATTEMPT 3RD AND FINAL CALL TO GIVE REPORT.
--- NOTE | 2019-05-21 16:47 | NUR ---
NURSE TO NURSE REPORT GIVEN. PATIENT LEFT VIA [facility].
== END 2019-05-21 16:47 | disposition other institution (70) | DRG 871 ==
LOC: ED 05:08 → ICCU 08:01 → 4E 08:01
PROVIDERS: Emergency Medicine; Internal Medicine; Internal Medicine Critical Care Medicine; Internal Medicine Nephrology; ADMIT Internal Medicine
PROC: 5A1945Z Respiratory Ventilation, 24-96 Consecutive Hours (ICD-10-PCS; principal; 2019-05-12)
PROC: B548ZZA Ultrasonography of Superior Vena Cava, Guidance (ICD-10-PCS; principal; 2019-05-12)
PROC: 03HY32Z Insertion of Monitoring Device into Upper Artery, Percutaneous Approach (ICD-10-PCS; principal; 2019-05-12)
PROC: 02HV33Z Insertion of Infusion Device into Superior Vena Cava, Percutaneous Approach (ICD-10-PCS; principal; 2019-05-12)
PROC: 0BH17EZ Insertion of Endotracheal Airway into Trachea, Via Natural or Artificial Opening (ICD-10-PCS; principal; 2019-05-12)
PROC: 5A09357 Assistance with Respiratory Ventilation, Less than 24 Consecutive Hours, Continuous Positive Airway Pressure (ICD-10-PCS; principal; 2019-05-12)
PROC: 0HBRXZZ Excision of Toe Nail, External Approach (ICD-10-PCS; 2019-05-13)
PROC: 5A09357 Assistance with Respiratory Ventilation, Less than 24 Consecutive Hours, Continuous Positive Airway Pressure (ICD-10-PCS; 2019-05-15)
PROC: 5A09357 Assistance with Respiratory Ventilation, Less than 24 Consecutive Hours, Continuous Positive Airway Pressure (ICD-10-PCS; 2019-05-16)
PROC: 5A09357 Assistance with Respiratory Ventilation, Less than 24 Consecutive Hours, Continuous Positive Airway Pressure (ICD-10-PCS; 2019-05-17)
PROC: 5A09357 Assistance with Respiratory Ventilation, Less than 24 Consecutive Hours, Continuous Positive Airway Pressure (ICD-10-PCS; 2019-05-18)
PROC: 5A09357 Assistance with Respiratory Ventilation, Less than 24 Consecutive Hours, Continuous Positive Airway Pressure (ICD-10-PCS; 2019-05-19)
PROC: 5A09357 Assistance with Respiratory Ventilation, Less than 24 Consecutive Hours, Continuous Positive Airway Pressure (ICD-10-PCS; 2019-05-20)
PROC: 5A09357 Assistance with Respiratory Ventilation, Less than 24 Consecutive Hours, Continuous Positive Airway Pressure (ICD-10-PCS; 2019-05-21)
DX: A41.9 Sepsis, unspecified organism (principal); N17.0 Acute kidney failure with tubular necrosis; G93.41 Metabolic encephalopathy; J15.6 Pneumonia due to other Gram-negative bacteria; E43 Unspecified severe protein-calorie malnutrition; J96.21 Acute and chronic respiratory failure with hypoxia; J96.22 Acute and chronic respiratory failure with hypercapnia; E87.1 Hypo-osmolality and hyponatremia; E66.2 Morbid (severe) obesity with alveolar hypoventilation; M62.82 Rhabdomyolysis; J45.41 Moderate persistent asthma with (acute) exacerbation; I47.2 Ventricular tachycardia; E87.2 Acidosis; J98.11 Atelectasis; Z68.41 Body mass index [BMI] 40.0-44.9, adult; F17.210 Nicotine dependence, cigarettes, uncomplicated; I11.9 Hypertensive heart disease without heart failure; F41.1 Generalized anxiety disorder; E83.39 Other disorders of phosphorus metabolism; E83.42 Hypomagnesemia; E87.8 Other disorders of electrolyte and fluid balance, not elsewhere classified; E78.2 Mixed hyperlipidemia; I48.0 Paroxysmal atrial fibrillation; B35.1 Tinea unguium; I73.9 Peripheral vascular disease, unspecified; E86.0 Dehydration; G89.29 Other chronic pain; M54.9 Dorsalgia, unspecified; J43.2 Centrilobular emphysema; M15.9 Polyosteoarthritis, unspecified; Z96.1 Presence of intraocular lens; M47.896 Other spondylosis, lumbar region; R62.7 Adult failure to thrive; E87.5 Hyperkalemia; J20.9 Acute bronchitis, unspecified; W18.30XA Fall on same level, unspecified, initial encounter; Y93.89 Activity, other specified; Y92.098 Other place in other non-institutional residence as the place of occurrence of the external cause; Y99.8 Other external cause status; Z82.3 Family history of stroke; Z82.49 Family history of ischemic heart disease and other diseases of the circulatory system; Z98.49 Cataract extraction status, unspecified eye; Z79.899 Other long term (current) drug therapy

== ENCOUNTER → 2019-07-02 | Outpatient (CLI) | payer MEDICARE ==
[~2019-07-02] MED LIST changes: +BUMETANIDE1 MG PO; +CARVEDILOL12.5 MG PO; +DOXYCYCLINE100 M3 PO; +HYDROCODONE-AC1 EAC2 PO; +IBU600 M1 PO; +LISINOPRIL20 MG PO; +MAGNESIUM OXID400 MG PO; +MECLIZINE HCL25 M2 PO; +PREDNISONE5 MG PO; +PROTONIX40 MG PO; +VENTOLIN 02.5 MG/3 M NEB; +XARE20MG PO; +ZESTORETIC 20-1 EACH PO
[2019-07-02 10:12] LABS: BASO # 0.1 10*3/uL (0.0-0.1); BASO % 0.6 % (0.0-1.0); EOS # 0.2 10*3/uL (0.0-0.4); EOS % 2.2 % (1.0-4.0); HEMATOCRIT 41.9 % (42.0-52.0); HEMOGLOBIN 13.2 g/dl (14.0-18.0); LYMPH # 2.3 10*3/uL (1.3-4.4); MEAN CELL VOLUME 97.9 fl (80.0-94.0); MEAN CORPUSCULAR HGB 30.8 pg (27.0-31.0); MEAN CORPUSCULAR HGB CONC 31.5 g/dl (33.0-37.0); MEAN PLATELET VOLUME 11.7 fl (9.6-12.3); MONO # 0.5 10*3/uL (0.1-1.0); MONO % 4.8 % (3.0-9.0); NEUT # 7.2 10*3/uL (2.3-7.9); NEUT % 69.5 % (47.0-73.0); PLATELET COUNT AUTOMATED 273 10*3/uL (130-400); RED BLOOD COUNT 4.28 10*6/uL (4.50-5.90); RED CELL DISTRI WIDTH 14.2 % (0-14.5); WHITE BLOOD COUNT 10.3 10*3/uL (4.8-10.8)
[2019-07-02 10:37] LABS: ALBUMIN 2.9 gm/dl (3.1-4.5); ALKALINE PHOSPHATASE 86 U/L (45-117); BUN 14 mg/dl (7-24); CHLORIDE 100 mmol/L (98-107); CHOLESTEROL 176 mg/dL (<200); CREATININE 1.13 mg/dL (0.70-1.30); FREE T4 1.26 ng/dl (0.76-1.46); HDL CHOLESTEROL 29 mg/dl (40-60); LDL CHOLESTEROL 118 mg/dL (9-159); POTASSIUM 3.5 mmol/L (3.5-5.1); SGOT/AST 13 IU/L (3-35); SGPT/ALT 19 U/L (12-78); SODIUM 138 mmol/L (136-145); TOTAL PROTEIN 7.6 gm/dL (6.4-8.2); TRIGLYCERIDES 144 mg/dl (<150); VLDL CHOLESTEROL 29 mg/dL (6-40)
[2019-07-02 11:30] LABS: VITAMIN D, 25-HYDROXY 37.8 ng/mL (30-100)
== END | disposition home or self-care (01) ==
LOC: LAB 09:35
PROVIDERS: Internal Medicine
DX: Z12.5 Encounter for screening for malignant neoplasm of prostate (principal); I10 Essential (primary) hypertension; E78.2 Mixed hyperlipidemia; E55.9 Vitamin D deficiency, unspecified; E53.8 Deficiency of other specified B group vitamins; D52.9 Folate deficiency anemia, unspecified; D51.9 Vitamin B12 deficiency anemia, unspecified

== ENCOUNTER 2020-09-22 12:39 | Emergency (ER) | payer MEDICARE | END 2020-09-22 14:31 | disposition home or self-care (01) | LOC: ED 12:39 | DX: S20.212A Contusion of left front wall of thorax, initial encounter (principal); Z79.899 Other long term (current) drug therapy; W18.39XA Other fall on same level, initial encounter; Y93.89 Activity, other specified; Y92.89 Other specified places as the place of occurrence of the external cause; Y99.8 Other external cause status ==